=== PATIENT | male | born 1935 | race Hispanic/Latino ===

== ENCOUNTER 2017-06-13 15:17 | Observation (INO) | payer MEDICARE, OTHER ==
[2017-06-13 15:18] VITALS: BMI 25.5
[2017-06-13] MEDS ORDERED: Sodium Chloride 0.9% 1,000 ML IV STA (15:38)
[2017-06-13 15:59] LABS: BASO # 0.1 K/uL (0.0-0.2); BASO % 0.6 % (0.0-2.0); EOS # 0.3 K/uL (0.0-0.7); EOS % 3.7 % (0.0-4.0); HEMATOCRIT 42.5 % (35.0-51.0); LYMPH # 1.8 K/uL (1.0-4.3); LYMPH % 20.6 % (20.0-40.0); MEAN CELL VOLUME 91.2 fl (80.0-94.0); MEAN PLATELET VOLUME 7.3 fl (7.2-11.7); MONO # 0.7 K/uL (0.0-0.8); MONO % 7.8 % (0.0-10.0); NEUT % 67.3 % (50.0-75.0)
[2017-06-13 16:11] LABS: ALB/GLOB RATIO 1.2 (1.0-2.1); ALKALINE PHOSPHATASE 47 U/L (38-126); ALT/SGPT 32 U/L (21-72); AST/SGOT 36 U/L (17-59); BILIRUBIN,TOTAL 0.4 mg/dl (0.2-1.3); BLOOD UREA NITROGEN 19 mg/dl (9-20); CALCIUM 8.8 mg/dL (8.4-10.2); CARBON DIOXIDE 28 mmol/L (22-30); CHLORIDE 99 mmol/L (98-107); GFR AFRICAN-AMERICAN > 60; GLUCOSE,RANDOM 117 mg/dL (75-110); LIPASE 171 U/L (23-300); SODIUM 136 mmol/l (132-148); TOTAL PROTEIN 7.6 G/DL (6.3-8.2)
--- NOTE | 2017-06-13 16:13 | ED PDOC ---
HPI: Abdomen Time Seen by Provider: 06/13/17 15:31 Chief Complaint (Nursing): GI Problem Chief Complaint (Provider): GI Problem History Per: Patient History/Exam Limitations: no limitations Onset/Duration Of Symptoms: Days (x2 weeks) Current Symptoms Are (Timing): Still Present Additional Complaint(s): Castro Moura is a 82 year old male with previous medical history of Alzheimer's disease, dementia, hypertension and asthma, referred to the emergency department by Dr. Gomez, for an evaluation of intermittent upper abdominal pain exasperated after eating associated with nausea and vomiting ongoing for 2 weeks. Denied fever, chills, diarrhea, bloody stools, chest pain, cough or similar episodes in past. Medical Office Assistant: Colleen PMD: Ramiro Gomez MD Past Medical History Reviewed: Historical Data, Nursing Documentation, Vital Signs Vital Signs: Last Vital Signs Temp 98.4 F 06/13/17 15:23 Pulse 58 L 06/13/17 15:23 Resp 16 06/13/17 15:23 BP 145/76 06/13/17 15:23 Pulse Ox 100 06/13/17 18:20 - Medical History PMH: Alzheimer's Disease, Asthma, Benign Prostatic Hyperplasia, Dementia, HTN, Hypercholesterolemia, Hyperthyroidism, Hypothyroidism Denies: Chronic Kidney Disease - Surgical History Surgical History: No Surg Hx - Social History Current smoker - smoking cessation education provided: No Alcohol: None Drugs: Denies - Home Medications Home Medications: Ambulatory Orders Medication Instructions Recorded Cephalexin [Keflex] 500 mg pe PO QID 11/27/15 Levothyroxine [Synthroid] 1 tab PO DAILY 11/27/15 Tamsulosin [Flomax] 1 cap PO DAILY 11/27/15 traZODone [Desyrel] 1 tab PO HS 11/27/15 - Allergies Allergies/Adverse Reactions: Allergies Allergy/AdvReac Type Severity Reaction Status Date / Time No Known Allergies Allergy Verified 06/13/17 15:23 Review of Systems ROS Statement: Except As Marked, All Systems Reviewed And Found Negative Constitutional: Negative for: Fever, Chills Cardiovascular: Negative for: Chest Pain Respiratory: Negative for: Cough Gastrointestinal: Positive for: Nausea, Vomiting, Abdominal Pain (upper). Negative for: Diarrhea, Melena Physical Exam - Reviewed Nursing Documentation Reviewed: Yes Vital Signs Reviewed: Yes - Physical Exam Appears: Positive for: Well, Non-toxic, No Acute Distress Head Exam: Positive for: ATRAUMATIC, NORMAL INSPECTION, NORMOCEPHALIC Skin: Positive for: Normal Color Eye Exam: Positive for: Normal appearance ENT: Positive for: Normal ENT Inspection Neck: Positive for: Normal, Painless ROM, Supple. Negative for: Decreased ROM Cardiovascular/Chest: Positive for: Regular Rate, Rhythm, Chest Non Tender Respiratory: Positive for: Normal Breath Sounds, Accessory Muscle Use. Negative for: Decreased Breath Sounds, Respiratory Distress Gastrointestinal/Abdominal: Positive for: Bowel Sounds, Tenderness (mild epigastric/RUQ). Negative for: Normal Exam, Mass Back: Positive for: Normal Inspection. Negative for: L CVA Tenderness, R CVA Tenderness Extremity: Positive for: Normal ROM. Negative for: Tenderness, Pedal Edema, Deformity Neurologic/Psych: Positive for: Alert, Oriented - Laboratory Results Result Diagrams: 06/13/17 15:55 06/13/17 15:55 - ECG O2 Sat by Pulse Oximetry: 100 (RA) Pulse Ox Interpretation: Normal Medical Decision Making Medical Decision Making: Initial Impression: Abdominal pain R/O colelithiasis vs. gastritis vs. gastroenteritis vs. malignancy Initial Plan: * EKG * CMP * Lipase * Troponin I * CBC * NS 1,000ml IV per 1,000mls/hr * Pepcid 20mg IV * Zofran inj 4mg IV * US ABD Time: 1731 --US ABD FINDINGS: LIVER: Measures 11.0 cm. Normal echogenicity of the liver parenchyma. No mass. No intrahepatic bile duct dilatation. GALLBLADDER: There are multiple gallstones. No gallbladder wall thickening, pericholecystic fluid or positive sonographic Gordillo's sign. COMMON BILE DUCT: Measures 3.7 mm. No stones. No dilatation. PANCREAS: Unremarkable as visualized. No mass. No ductal dilatation. RIGHT KIDNEY: Measures 8.9cm. Normal echogenicity. No calculus, mass, or hydronephrosis. LEFT KIDNEY: Measures 9.4cm. Normal echogenicity. No calculus, mass, or hydronephrosis. SPLEEN: Normal in size and contour. No mass. AORTA: No aneurysmal dilatation. IVC: Unremarkable. OTHER FINDINGS: None. IMPRESSION: Cholelithiasis. No evidence of acute cholecystitis. Case discussed w PMD office, Dr Beau Gomez (RIDE MECHANIC who saw patient today) who recommends admission as patient unable to keep liquids down last several days, he lives alone, elderly with mild dementia. Dr Gomez admits to Dr Delacruz, call placed for endorsement to Dr Delacruz. d/w surgical resudent 7pm Scribe Attestation: Documented by Nettie Sharpe, acting as a scribe for Juan R Tan III, DO. Provider Scribe Attestation: All medical record entries made by the Scribe were at my direction and personally dictated by me. I have reviewed the chart and agree that the record accurately reflects my personal performance of the history, physical exam, medical decision making, and the department course for this patient. I have also personally directed, reviewed, and agree with the discharge instructions and disposition. Disposition - Clinical Impression Clinical Impression: Cholelithiases, Vomiting - Patient ED Disposition Is Patient to be Admitted: Yes - Disposition Disposition Time: 18:05 Condition: STABLE - Pt Status Changed To: Hospital Disposition Of: Observation - POA Present On Arrival: None
[2017-06-13 16:34] LABS: POTASSIUM 4.4 MMOL/L (3.6-5.0)
--- NOTE | 2017-06-13 17:33 | US ---
HISTORY: Upper abdominal pain and vomiting COMPARISON: None. TECHNIQUE: Sonographic evaluation of the abdomen. FINDINGS: LIVER: Measures 11.0 cm. Normal echogenicity of the liver parenchyma. No mass. No intrahepatic bile duct dilatation. GALLBLADDER: There are multiple gallstones. No gallbladder wall thickening, pericholecystic fluid or positive sonographic Gordillo's sign. COMMON BILE DUCT: Measures 3.7 mm. No stones. No dilatation. PANCREAS: Unremarkable as visualized. No mass. No ductal dilatation. RIGHT KIDNEY: Measures 8.9cm. Normal echogenicity. No calculus, mass, or hydronephrosis. LEFT KIDNEY: Measures 9.4cm. Normal echogenicity. No calculus, mass, or hydronephrosis. SPLEEN: Normal in size and contour. No mass. AORTA: No aneurysmal dilatation. IVC: Unremarkable. OTHER FINDINGS: None. IMPRESSION: Cholelithiasis. No evidence of acute cholecystitis.
--- NOTE | 2017-06-14 00:32 | CP.PCM.CON ---
History of Present Illness - History of Present Illness History of Present Illness: GENERAL SURGERY PROGRESS NOTE FOR DR. LEVIN 82yo M with PMHx of alzheimers, dementia, HTN, asthma, BPH, hypothyroidism presents to the ED as referred by Dr. Gomez for intermittent abdominal pain. The pain has been present for 2-3 weeks and is located in the epigastric area. He reports that it sometimes is worse with eating. He vomited 4 times but has not vomited since he got to the hospital. He denies nausea. Currently, he reports that the pain is gone and he is hungry. PMHx: alzheimers, dementia, HTN, asthma, BPH, hypothyroidism Surgeries: none Allergies: none Social history: denies etoh, tobacco or illicit drug use Review of Systems - Review of Systems All systems: reviewed and no additional remarkable complaints except (as per HPI ) Past Patient History - Past Medical History & Family History Past Medical History?: Yes - Past Social History Smoking Status: Never Smoked - CARDIAC Hx Hypercholesterolemia: Yes Hx Hypertension: Yes - PULMONARY Hx Asthma: Yes - NEUROLOGICAL Hx Alzheimer's Disease: Yes Hx Dementia: Yes - HEENT Hx Cataracts: Yes (s/p surgery) - RENAL Hx Chronic Kidney Disease: No - ENDOCRINE/METABOLIC Hx Hyperthyroidism: Yes Hx Hypothyroidism: Yes - MUSCULOSKELETAL/RHEUMATOLOGICAL Hx Back Pain: Yes Hx Falls: Yes (5 years ago) - GASTROINTESTINAL Hx Gastrointestinal Disorders: No - GENITOURINARY/GYNECOLOGICAL Hx Genitourinary Disorders: Yes - PSYCHIATRIC Hx Psychophysiologic Disorder: No Hx Substance Use: No - SURGICAL HISTORY Hx Surgeries: No - ANESTHESIA Hx Anesthesia: No Hx Anesthesia Reactions: No Meds Allergies/Adverse Reactions: Allergies Allergy/AdvReac Type Severity Reaction Status Date / Time No Known Allergies Allergy Verified 06/13/17 15:23 - Medications Medications: Current Medications Acetaminophen (Tylenol 325mg Tab) 650 mg PO Q6 PRN PRN Reason: Pain, moderate (4-7) Enoxaparin Sodium (Lovenox) 40 mg SC DAILY [facility] PRN Reason: Protocol Stop: 06/17/17 23:59 Levothyroxine Sodium (Synthroid) 100 mcg PO DAILY@0630 [facility] Tamsulosin HCl (Flomax) 0.4 mg PO DAILY [facility] Trazodone HCl (Desyrel) 50 mg PO HS [facility] Last Admin: 06/13/17 23:09 Dose: 50 mg Physical Exam - Constitutional Appears: Non-toxic, No Acute Distress - Head Exam Head Exam: ATRAUMATIC, NORMAL INSPECTION - Eye Exam Eye Exam: EOMI, Normal appearance - Respiratory Exam Respiratory Exam: NORMAL BREATHING PATTERN. absent: Respiratory Distress - Cardiovascular Exam Cardiovascular Exam: +S1, +S2 - GI/Abdominal Exam GI & Abdominal Exam: Soft, Tenderness (mild tenderness epigastric area). absent : Distended, Firm, Guarding, Hypoactive Bowel Sounds, Rebound, Rigid - Neurological Exam Neurological exam: Alert - Psychiatric Exam Psychiatric exam: Normal Affect, Normal Mood - Skin Skin Exam: Dry, Normal Color, Warm Results - Vital Signs Recent Vital Signs: Last Vital Signs Temp 97.7 F 06/13/17 20:53 Pulse 62 06/13/17 22:21 Resp 17 06/13/17 22:21 BP 129/72 06/13/17 20:53 Pulse Ox 94 L 06/13/17 22:21 - Labs Result Diagrams: 06/13/17 15:55 06/14/17 05:00 Labs: Laboratory Results - last 24 hr 06/13/17 06/13/17 15:55 15:55 WBC 9.0 RBC 4.66 Hgb 14.5 Hct 42.5 MCV 91.2 MCH 31.0 MCHC 34.0 RDW 14.0 Plt Count 220 MPV 7.3 Neut % (Auto) 67.3 Lymph % (Auto) 20.6 [place] % (Auto) 7.8 Eos % (Auto) 3.7 Baso % (Auto) 0.6 Neut # 6.0 Lymph # 1.8 [place] # 0.7 Eos # 0.3 Baso # 0.1 Sodium 136 Potassium 4.4 Chloride 99 Carbon Dioxide 28 Anion Gap 13 BUN 19 Creatinine 0.9 Est GFR ( Amer) > 60 Est GFR (Non-Af Amer) > 60 Random Glucose 117 H Calcium 8.8 Total Bilirubin 0.4 AST 36 ALT 32 Alkaline Phosphatase 47 Troponin I 0.0710 Total Protein 7.6 Albumin 4.2 Globulin 3.4 Albumin/Globulin Ratio 1.2 Lipase 171 Assessment & Plan - Assessment and Plan (Free Text) Assessment: 82yo M with PMHx of alzheimers, dementia, HTN, asthma, BPH, hypothyroidism who was found to have cholelithiasis and possibly biliary colic - Afebrile, VSS - No leukocytosis - Bilirubin, LFTs WNL - US: multiple gallstones, no signs of cholecystitis, CBD 3.7mm - Regular diet - Zofran and Percocet PRN - Will do serial abdominal exams - Can follow up outpatient in Dr. Levin's office for elective cholecystectomy - Discussed plan with Dr. Keyla Romero PGY-3
[2017-06-14] MEDS ORDERED: Oxycodone/Acetaminophen 5/325 mg Tab PO PRN (00:35)
[2017-06-14 05:47] LABS: HEMATOCRIT 39.5 % (35.0-51.0); MEAN CELL VOLUME 91.6 fl (80.0-94.0); MEAN CORPUSCULAR HEMOGLOBIN 31.5 pg (27.0-31.0); MEAN CORPUSCULAR HGB CONC 34.4 g/dL (33.0-37.0)
[2017-06-14 06:07] LABS: ALB/GLOB RATIO 1.2 (1.0-2.1); ALKALINE PHOSPHATASE 44 U/L (38-126); ALT/SGPT 24 U/L (21-72); AST/SGOT 20 U/L (17-59); BILIRUBIN,TOTAL 0.5 mg/dl (0.2-1.3); BLOOD UREA NITROGEN 15 mg/dl (9-20); CALCIUM 8.4 mg/dL (8.4-10.2); CARBON DIOXIDE 29 mmol/L (22-30); CHLORIDE 104 mmol/L (98-107); CHOLESTEROL 187 mg/dL (0-199); GFR AFRICAN-AMERICAN > 60; GLUCOSE,RANDOM 92 mg/dL (75-110); POTASSIUM 3.7 MMOL/L (3.6-5.0); SODIUM 139 mmol/l (132-148); TOTAL PROTEIN 6.2 G/DL (6.3-8.2)
[2017-06-14 06:30] LABS: THYROID STIMULATING HORMONE 1.78 mIU/ML (0.46-4.68)
[2017-06-14] MEDS ORDERED: Levothyroxine 100 MCG TAB PO SCH (06:30)
[2017-06-14 07:53] VITALS: RESP 18
--- NOTE | 2017-06-14 08:47 | CP.PCM.CON ---
<Radha Diego - Last Filed: 06/14/17 10:58> History of Present Illness - History of Present Illness History of Present Illness: GI Fellow PGY4 Consult Note This is a 82yo M with PMHx of alzheimers, dementia, HTN, asthma, BPH, hypothyroidism presents to the ED for intermittent right upper quadrant abdominal pain. Pt reports he has been experiencing pain for = 2-3 weeks and is worse with eating certain meals, not all the time. He vomited 4 times but has not vomited since he got to the hospital. Currently, he reports that the pain is gone and is eating scrambled eggs and pancakes with no complaints. Pt denies any fevers or chills at home. Pt had an EGD/Colonoscopy with which showed esophagitis, erosions in antrum, chronic gastritis, negative for H.Pylori. Colonoscopy showed diverticulosis and internal hemorrhoids. Pt is not any PPI therapy at home and reports intermittent heartburn. ROS: A 12pt ROS negative except as above PMHx: alzheimers, dementia, HTN, asthma, BPH, hypothyroidism PSHx: None SHx: denies etoh, tobacco or illicit drug use FHx: denies colon cancer Past Patient History - Past Medical History & Family History Past Medical History?: Yes - Past Social History Smoking Status: Never Smoked - CARDIAC Hx Hypercholesterolemia: Yes Hx Hypertension: Yes - PULMONARY Hx Asthma: Yes - NEUROLOGICAL Hx Alzheimer's Disease: Yes Hx Dementia: Yes - HEENT Hx Cataracts: Yes (s/p surgery) - RENAL Hx Chronic Kidney Disease: No - ENDOCRINE/METABOLIC Hx Hyperthyroidism: Yes Hx Hypothyroidism: Yes - MUSCULOSKELETAL/RHEUMATOLOGICAL Hx Back Pain: Yes Hx Falls: Yes (5 years ago) - GASTROINTESTINAL Hx Gastrointestinal Disorders: No - GENITOURINARY/GYNECOLOGICAL Hx Genitourinary Disorders: Yes - PSYCHIATRIC Hx Psychophysiologic Disorder: No Hx Substance Use: No - SURGICAL HISTORY Hx Surgeries: No - ANESTHESIA Hx Anesthesia: No Hx Anesthesia Reactions: No Meds Allergies/Adverse Reactions: Allergies Allergy/AdvReac Type Severity Reaction Status Date / Time No Known Allergies Allergy Verified 06/13/17 15:23 - Medications Medications: Current Medications Acetaminophen (Tylenol 325mg Tab) 650 mg PO Q6 PRN PRN Reason: Pain, moderate (4-7) Enoxaparin Sodium (Lovenox) 40 mg SC DAILY [facility] PRN Reason: Protocol Stop: 06/17/17 23:59 Levothyroxine Sodium (Synthroid) 100 mcg PO DAILY@0630 [facility] Last Admin: 06/14/17 06:21 Dose: 100 mcg Ondansetron HCl (Zofran Inj) 4 mg IVP Q4 PRN PRN Reason: Nausea/Vomiting Oxycodone/Acetaminophen (Percocet 5/325 Mg Tab) 1 tab PO Q4 PRN PRN Reason: Pain, moderate (4-7) Stop: 06/17/17 00:36 Tamsulosin HCl (Flomax) 0.4 mg PO DAILY [facility] Trazodone HCl (Desyrel) 50 mg PO HS [facility] Last Admin: 06/13/17 23:09 Dose: 50 mg Physical Exam - Constitutional Appears: Non-toxic, No Acute Distress - Head Exam Head Exam: ATRAUMATIC, NORMAL INSPECTION, NORMOCEPHALIC - Eye Exam Eye Exam: EOMI, Normal appearance, PERRL Pupil Exam: PERRL - ENT Exam ENT Exam: Mucous Membranes Moist, Normal Exam - Neck Exam Neck exam: Positive for: Normal Inspection - Respiratory Exam Respiratory Exam: Clear to Auscultation Bilateral, NORMAL BREATHING PATTERN - Cardiovascular Exam Cardiovascular Exam: RRR, +S1, +S2 - GI/Abdominal Exam GI & Abdominal Exam: Normal Bowel Sounds, Soft. absent: Distended, Firm, Guarding, Organomegaly, Rigid, Tenderness - Rectal Exam Rectal Exam: Deferred - Extremities Exam Extremities exam: Positive for: full ROM, normal inspection - Back Exam Back exam: NORMAL INSPECTION - Neurological Exam Neurological exam: Alert, Oriented x3 - Psychiatric Exam Psychiatric exam: Normal Affect, Normal Mood - Skin Skin Exam: Dry, Intact, Normal Color, Warm Results - Vital Signs Recent Vital Signs: Last Vital Signs Temp 98.1 F 06/14/17 07:52 Pulse 63 06/14/17 07:52 Resp 18 06/14/17 07:52 BP 117/68 06/14/17 07:52 Pulse Ox 98 06/14/17 07:52 - Labs Result Diagrams: 06/13/17 15:55 06/14/17 05:00 Labs: Laboratory Results - last 24 hr 06/13/17 06/13/17 06/13/17 05:00 15:55 15:55 WBC 7.0 9.0 RBC 4.31 L 4.66 Hgb 13.6 14.5 Hct 39.5 42.5 MCV 91.6 91.2 MCH 31.5 H 31.0 MCHC 34.4 34.0 RDW 14.0 14.0 Plt Count 214 220 MPV 7.3 Neut % (Auto) 67.3 Lymph % (Auto) 20.6 [place] % (Auto) 7.8 Eos % (Auto) 3.7 Baso % (Auto) 0.6 Neut # 6.0 Lymph # 1.8 [place] # 0.7 Eos # 0.3 Baso # 0.1 Sodium 136 Potassium 4.4 Chloride 99 Carbon Dioxide 28 Anion Gap 13 BUN 19 Creatinine 0.9 Est GFR ( Amer) > 60 Est GFR (Non-Af Amer) > 60 Random Glucose 117 H Calcium 8.8 Total Bilirubin 0.4 AST 36 ALT 32 Alkaline Phosphatase 47 Troponin I 0.0710 Total Protein 7.6 Albumin 4.2 Globulin 3.4 Albumin/Globulin Ratio 1.2 Triglycerides Cholesterol LDL Cholesterol Direct HDL Cholesterol Lipase 171 Vitamin B12 Thyroxine (T4) Total T3 TSH 3rd Generation 06/14/17 05:00 WBC RBC Hgb Hct MCV MCH MCHC RDW Plt Count MPV Neut % (Auto) Lymph % (Auto) [place] % (Auto) Eos % (Auto) Baso % (Auto) Neut # Lymph # [place] # Eos # Baso # Sodium 139 Potassium 3.7 Chloride 104 Carbon Dioxide 29 Anion Gap 10 BUN 15 Creatinine 0.9 Est GFR ( Amer) > 60 Est GFR (Non-Af Amer) > 60 Random Glucose 92 Calcium 8.4 Total Bilirubin 0.5 AST 20 ALT 24 Alkaline Phosphatase 44 Troponin I Total Protein 6.2 L Albumin 3.4 L Globulin 2.9 Albumin/Globulin Ratio 1.2 Triglycerides 131 Cholesterol 187 LDL Cholesterol Direct 126 HDL Cholesterol 33 Lipase Vitamin B12 640 Thyroxine (T4) 7.90 Total T3 0.792 L TSH 3rd Generation 1.78 Assessment & Plan - Assessment and Plan (Free Text) Assessment: This is a 82yM with PMHx of alzheimers, dementia, HTN, asthma, BPH, hypothyroidism presenting with RUQ abdominal pain and vomiting. 1. Cholelithiasis 2. Abdominal pain and vomiting -Biliary colic 3. Hx of chronic gastritis Plan: -Continue supportive care with pain control and anti-emetics - No signs of infection with no leukocytosis, Afebrile - Labs are wnl with Bilirubin, LFTs - Abdominal US: multiple gallstones, no signs of cholecystitis, CBD 3.7mm - No more abdominal pain, vomiting or nausea - Advance diet as tolerated - Follow up with surgery for cholecystectomy - No plan for endoscopic evaluation - Can take Pepcid prn heartburn for gastritis - Please call with any questions or concerns <Graciela Belle MD - Last Filed: 06/14/17 14:52> Meds - Medications Medications: Current Medications Acetaminophen (Tylenol 325mg Tab) 650 mg PO Q6 PRN PRN Reason: Pain, moderate (4-7) Last Admin: 06/14/17 13:31 Dose: 650 mg Enoxaparin Sodium (Lovenox) 40 mg SC DAILY [facility] PRN Reason: Protocol Stop: 06/17/17 23:59 Last Admin: 06/14/17 09:02 Dose: 40 mg Levothyroxine Sodium (Synthroid) 100 mcg PO DAILY@0630 [facility] Last Admin: 06/14/17 06:21 Dose: 100 mcg Ondansetron HCl (Zofran Inj) 4 mg IVP Q4 PRN PRN Reason: Nausea/Vomiting Last Admin: 06/14/17 09:09 Dose: 4 mg Oxycodone/Acetaminophen (Percocet 5/325 Mg Tab) 1 tab PO Q4 PRN PRN Reason: Pain, moderate (4-7) Stop: 06/17/17 00:36 Pantoprazole Sodium (Protonix Ec Tab) 40 mg PO DAILY [facility] Last Admin: 06/14/17 13:31 Dose: 40 mg Tamsulosin HCl (Flomax) 0.4 mg PO DAILY [facility] Last Admin: 06/14/17 09:03 Dose: 0.4 mg Trazodone HCl (Desyrel) 50 mg PO HS [facility] Last Admin: 06/13/17 23:09 Dose: 50 mg Results - Vital Signs Recent Vital Signs: Last Vital Signs Temp 98.1 F 06/14/17 07:52 Pulse 63 06/14/17 07:52 Resp 18 06/14/17 07:52 BP 117/68 06/14/17 07:52 Pulse Ox 98 06/14/17 07:52 - Labs Result Diagrams: 06/13/17 15:55 06/14/17 05:00 Labs: Laboratory Results - last 24 hr 06/13/17 06/13/17 06/13/17 05:00 15:55 15:55 WBC 7.0 9.0 RBC 4.31 L 4.66 Hgb 13.6 14.5 Hct 39.5 42.5 MCV 91.6 91.2 MCH 31.5 H 31.0 MCHC 34.4 34.0 RDW 14.0 14.0 Plt Count 214 220 MPV 7.3 Neut % (Auto) 67.3 Lymph % (Auto) 20.6 [place] % (Auto) 7.8 Eos % (Auto) 3.7 Baso % (Auto) 0.6 Neut # 6.0 Lymph # 1.8 [place] # 0.7 Eos # 0.3 Baso # 0.1 Sodium 136 Potassium 4.4 Chloride 99 Carbon Dioxide 28 Anion Gap 13 BUN 19 Creatinine 0.9 Est GFR ( Amer) > 60 Est GFR (Non-Af Amer) > 60 Random Glucose 117 H Calcium 8.8 Total Bilirubin 0.4 AST 36 ALT 32 Alkaline Phosphatase 47 Troponin I 0.0710 Total Protein 7.6 Albumin 4.2 Globulin 3.4 Albumin/Globulin Ratio 1.2 Triglycerides Cholesterol LDL Cholesterol Direct HDL Cholesterol Lipase 171 Vitamin B12 Thyroxine (T4) Total T3 TSH 3rd Generation 06/14/17 05:00 WBC RBC Hgb Hct MCV MCH MCHC RDW Plt Count MPV Neut % (Auto) Lymph % (Auto) [place] % (Auto) Eos % (Auto) Baso % (Auto) Neut # Lymph # [place] # Eos # Baso # Sodium 139 Potassium 3.7 Chloride 104 Carbon Dioxide 29 Anion Gap 10 BUN 15 Creatinine 0.9 Est GFR ( Amer) > 60 Est GFR (Non-Af Amer) > 60 Random Glucose 92 Calcium 8.4 Total Bilirubin 0.5 AST 20 ALT 24 Alkaline Phosphatase 44 Troponin I Total Protein 6.2 L Albumin 3.4 L Globulin 2.9 Albumin/Globulin Ratio 1.2 Triglycerides 131 Cholesterol 187 LDL Cholesterol Direct 126 HDL Cholesterol 33 Lipase Vitamin B12 640 Thyroxine (T4) 7.90 Total T3 0.792 L TSH 3rd Generation 1.78 Attending/Attestation - Attestation I have personally seen and examined this patient.: Yes I have fully participated in the care of the patient.: Yes I have reviewed all pertinent clinical information: Yes Notes (Text): 06/14/17 14:48 This is a 82 yr old M with PMHx of alzheimers, dementia, HTN, asthma, BPH, hypothyroidism presenting with RUQ abdominal pain and vomiting with cholelithiasis and normal CBD. No s/s of cholangitis. Normal LFT. Tolerating diet. No GI work up necessary. No Gi symptoms. Rest of plan as per surgery. Thank you for letting us participate in the care of your patient.
[2017-06-14] MEDS ORDERED: Enoxaparin 40 mg Syringe SC SCH (09:00)
[2017-06-14] MEDS ORDERED: Pantoprazole 40 mg EC Tab PO SCH (10:30)
--- NOTE | 2017-06-14 12:04 | HP ---
CHIEF COMPLAINT: Abdominal pain. HISTORY OF PRESENT ILLNESS: This is an 82-year-old man who lives at home alone and was having abdominal pain for a long time for which he visited primary care physician's office and was treated accordingly, but the patient's symptoms continued, it got worse, so the patient was brought to the emergency room and was admitted for further management. PAST MEDICAL HISTORY: Significant for dementia, asthma, BPH, hypertension. PAST SURGICAL HISTORY: Unremarkable. PERSONAL HISTORY: The patient is currently nonsmoker, nondrinker. No substance abuse. MEDICATIONS: The patient is on multiple medications including Keflex, Synthroid, Flomax and . ALLERGIES: THE PATIENT IS NOT ALLERGIC TO ANY MEDICATIONS. FAMILY HISTORY: Noncontributory. REVIEW OF SYSTEMS: Positive for abdominal pain. Review of systems otherwise is negative for headache, dizziness, syncope, loss of consciousness, chest pain, shortness of breath, nausea, vomiting, diarrhea, constipation, anemia, joint or extremity pain. Review of systems of all other organ system is unremarkable. PHYSICAL EXAMINATION GENERAL: A well-built, well-nourished, 82-year-old male, in no acute distress. VITAL SIGNS: Temperature 98.1, pulse 63, respirations 18, blood pressure 117/68. HEENT: Pupils reacting to light. No JVD. No thyromegaly. No lymphadenopathy. No nystagmus. Normocephalic, atraumatic skull. HEART: S1 and S2, normal and regular. No significant murmur, gallop or rub is heard. LUNGS: Shows good bilateral air exchange. No rales or rhonchi. ABDOMEN: Soft, nontender. No organomegaly. No fluid. No sign of acute abdomen. No guarding. No rigidity. No rebound. Bowel sounds are plus and normal. EXTERNAL GENITALIA: Appropriate for the patient's age. Stool for occult blood is negative. EXTREMITIES: No edema. No calf swelling. No tenderness. No acute ischemia. CENTRAL NERVOUS SYSTEM: Essentially unchanged. DIAGNOSTIC DATA: Available diagnostic data reviewed. WBC 9.0, hemoglobin 14.5, hematocrit 42.5, platelet 220. Sodium 139, potassium 3.7, chloride 104, bicarb 29, BUN 15, creatinine 0.9. SMA-12 is unremarkable. Abdominal ultrasound showed gallstones. Surgical consult noted and appreciated. ADMITTING IMPRESSION: Abdominal pain, cholelithiasis, hypertension, hypothyroidism. PLAN: As ordered. Case and plan discussed with the patient. Cristobal Delacruz MD
--- NOTE | 2017-06-14 15:05 | CP.PCM.PCO ---
Assessment/Plan - Assessment/Plan Assessment (Free Text): Pt stable, tolerated 75 % of lunch. C/o of headache, tylenol given, pt feels better. Pt seen by GI and Sx, no intervention at this time. Pt to f/u as outpatient with Dr. Ramires. Pt seen and cleared for d/c home by Dr. Delacruz. Spoke to pt's son Johnathon ([phone]) who states pt lives with him and that either him or his brother will come to roll picker pt to take him home. Rx given for protonix. - Problems Patient Problems: Problem List (Active/Current) Problem Status Onset Code Cholelithiases Acute K80.20 Vomiting Acute R11.10
[2017-06-14 15:56] VITALS: BP 112/78; PULSE 75; TEMP 98.2; O2SAT 96
--- NOTE | 2017-06-15 08:50 | CARD ---
APPROVED REPORT EKG Measurement Heart [id number] <Conclusion> Sinus bradycardia Otherwise normal ECG
== END 2017-06-14 18:09 | disposition home or self-care (01) ==
LOC: H.ER 15:17 → H.ERHOLD 18:17 → INTOOBSV 18:17 → H.MEDSURG1 20:20
PROVIDERS: ADMIT Internal Medicine; ATTEND Internal Medicine
DX: K80.20 Calculus of gallbladder without cholecystitis without obstruction (principal); K29.50 Unspecified chronic gastritis without bleeding; G30.9 Alzheimer's disease, unspecified; F02.80 Dementia in other diseases classified elsewhere, unspecified severity, without behavioral disturbance, psychotic disturbance, mood disturbance, and anxiety; E03.9 Hypothyroidism, unspecified; I10 Essential (primary) hypertension; J45.909 Unspecified asthma, uncomplicated; N40.0 Benign prostatic hyperplasia without lower urinary tract symptoms; E78.00 Pure hypercholesterolemia, unspecified
CPT/HCPCS: 36415; 76700; 80053; 80061; 82607; 83690; 84436; 84443; 84480; 84484; 85025; 85027; 99283; G0378; J1650; J1885; J2405; J7040

== ENCOUNTER 2018-02-25 15:34 | Inpatient (IN) | payer MEDICARE, MEDICAID ==
[2018-02-25 15:34] VITALS: BMI 25.5
[2018-02-25] MEDS ORDERED: Sodium Chloride 0.9% 1,000 ML IV STA (16:22)
--- NOTE | 2018-02-25 16:28 | ED PDOC ---
HPI: Abdomen Time Seen by Provider: 02/25/18 16:14 Chief Complaint (Nursing): Abdominal Pain Chief Complaint (Provider): RUQ pain History Per: Patient History/Exam Limitations: no limitations Onset/Duration Of Symptoms: Days (3 months) Additional Complaint(s): Pt. with abd pain RUQ and epigastric for 3 months. Seen in ER here and at [address] Was told it was his gallbladder but did not get any surgery for it. Has had nausea and vomit, nonbloody with it. No back pain, lower abd pain , weakness, dysuria. No headaches, dizziness. No fever. No chest pain or dyspnea. PCP: Dr. Terrazas; Dr. Delacruz admits for him. Past Medical History Reviewed: Nursing Documentation, Vital Signs Vital Signs: Last Vital Signs Temp 97.9 F 02/25/18 15:47 Pulse 60 02/25/18 15:47 Resp 18 02/25/18 15:47 BP 132/70 02/25/18 15:47 Pulse Ox 97 02/25/18 16:29 - Medical History PMH: Alzheimer's Disease, Asthma, Benign Prostatic Hyperplasia, Dementia, HTN, Hypercholesterolemia, Hyperthyroidism, Hypothyroidism Denies: Chronic Kidney Disease - Surgical History Surgical History: No Surg Hx - Family History Family History: States: Unknown Family Hx - Home Medications Home Medications: Ambulatory Orders Medication Instructions Recorded RX: Levothyroxine [Synthroid] 1 tab PO DAILY 11/27/15 RX: Tamsulosin [Flomax] 1 cap PO DAILY 11/27/15 RX: traZODone [Desyrel] 1 tab PO HS 11/27/15 RX: Pantoprazole [Protonix EC Tab] 40 mg PO DAILY #30 ect 06/14/17 - Allergies Allergies/Adverse Reactions: Allergies Allergy/AdvReac Type Severity Reaction Status Date / Time No Known Allergies Allergy Verified 02/25/18 15:47 Review of Systems ROS Statement: Except As Marked, All Systems Reviewed And Found Negative Gastrointestinal: Positive for: Nausea, Vomiting, Abdominal Pain Physical Exam - Reviewed Nursing Documentation Reviewed: Yes Vital Signs Reviewed: Yes - Physical Exam Appears: Positive for: Non-toxic, No Acute Distress Head Exam: Positive for: ATRAUMATIC, NORMAL INSPECTION, NORMOCEPHALIC Skin: Positive for: Normal Color, Warm, DRY Eye Exam: Positive for: EOMI, Normal appearance, PERRL ENT: Positive for: Normal ENT Inspection Neck: Positive for: Normal, Painless ROM Cardiovascular/Chest: Positive for: Regular Rate, Rhythm Respiratory: Positive for: CNT, Normal Breath Sounds Gastrointestinal/Abdominal: Positive for: Soft, Tenderness (epigastric and RUQ; no tenderness to deep palpation of periumbilical or R and L lower quadrant.) Back: Positive for: Normal Inspection. Negative for: L CVA Tenderness, R CVA Tenderness Extremity: Positive for: Normal ROM Neurologic/Psych: Positive for: Alert, Oriented - ECG O2 Sat by Pulse Oximetry: 97 - Progress ED Course And Treament: 1658: Dr. Tan to take over care. Fu on labs and imaging. Disposition - Clinical Impression Clinical Impression: Abdominal pain - Patient ED Disposition Is Patient to be Admitted: Transfer of Care - Disposition Disposition Time: 17:00 Condition: FAIR Patient Signed Over To: Juan R Tan III
[2018-02-25 16:51] LABS: BASO % 0.2 % (0.0-2.0); EOS # 0.6 K/uL (0.0-0.7); EOS % 6.8 % (0.0-4.0); HEMOGLOBIN 13.7 g/dL (12.0-18.0); LYMPH % 23.1 % (20.0-40.0); MEAN CELL VOLUME 92.6 fl (80.0-94.0); MEAN CORPUSCULAR HEMOGLOBIN 30.9 pg (27.0-31.0); MEAN CORPUSCULAR HGB CONC 33.4 g/dL (33.0-37.0); MEAN PLATELET VOLUME 7.5 fl (7.2-11.7); MONO # 0.8 K/uL (0.0-0.8); MONO % 9.1 % (0.0-10.0); NEUT # 5.2 K/uL (1.8-7.0); NEUT % 60.8 % (50.0-75.0); RBC 4.44 Mil/uL (4.40-5.90); RED CELL DISTRIBUTION WIDTH 14.1 % (11.5-14.5); WHITE BLOOD COUNT 8.6 K/uL (4.8-10.8)
[2018-02-25 17:06] LABS: ALB/GLOB RATIO 1.3 (1.0-2.1); ALBUMIN 3.9 g/dL (3.5-5.0); ALT/SGPT 29 U/L (21-72); AST/SGOT 27 U/L (17-59); BLOOD UREA NITROGEN 19 mg/dl (9-20); CALCIUM 8.8 mg/dL (8.4-10.2); GFR AFRICAN-AMERICAN > 60; GFR NON-AFRICAN AMERICAN > 60; LIPASE 215 U/L (23-300)
[2018-02-25 17:16] LABS: PARTIAL THROMBOPLASTIN TIME 30.4 Seconds (25.6-37.1)
--- NOTE | 2018-02-25 17:45 | US ---
HISTORY: abd pain eval gb and pancreas COMPARISON: Abdominal ultrasound dated 06/13/2017. TECHNIQUE: Sonographic evaluation of the right upper quadrant of the abdomen. FINDINGS: LIVER: Measures 10.8 cm in length. Normal echogenicity of the liver parenchyma. No mass. No intrahepatic bile duct dilatation. GALLBLADDER: Cholelithiasis with wall thickening/edema. Sonographic Gordillo's sign was not elicited. COMMON BILE DUCT: Measures 3 mm. No stones. No dilatation. PANCREAS: Unremarkable as visualized. No mass. No ductal dilatation. RIGHT KIDNEY: Measures 8.2 x 4.3 x 5.0 cm in length. Normal echogenicity. No calculus, mass, or hydronephrosis. AORTA: No aneurysmal dilatation. IVC: Unremarkable. OTHER FINDINGS: None . IMPRESSION: Cholelithiasis with wall thickening/ edema. Sonographic Gordillo sign was not elicited. Findings are equivocal for acute cholecystitis. Nuclear medicine HIDA scan can be obtained to further evaluate patency of the cystic duct.
--- NOTE | 2018-02-25 17:45 | ED PDOC ---
- Laboratory Results Result Diagrams: 02/27/18 06:30 02/27/18 06:30 - ECG O2 Sat by Pulse Oximetry: 97 Pulse Ox Interpretation: Normal Medical Decision Making Medical Decision Making: Recd from Dr Montenegro at 5pm pending US and labs LFTs and WBC normal US reveals +edema of GB wall w cholelithiasis, equivocal for cholecystitis Given development ogf GB wall thickening, recurrent hospitalizations admit for surgical eval Dr Delacruz contacted requested Dr Matthew Lorenzo surgery, [facility] Disposition Counseled Patient/Family Regarding: Studies Performed, Diagnosis (d/w family also) - Clinical Impression Clinical Impression: Cholecystitis, Bradycardia - POA Present On Arrival: None - Disposition Disposition: Admitted as In-Patient Disposition Time: 18:01 Condition: FAIR
[2018-02-25 17:51] LABS: INR 1.1 (0.9-1.2); PROTHROMBIN TIME 12.5 Seconds (9.8-13.1)
--- NOTE | 2018-02-25 19:28 | CP.PCM.CON ---
<Roya Rizo - Last Filed: 02/25/18 22:11> History of Present Illness - History of Present Illness History of Present Illness: General Surgery - Dr. Ayana Lorenzo 82yo M w/ hx of HTN, Hypothyroid, BPH, presenting with RUQ abdominal pain. Pt states he has had this pain on and off for the past 4 months. This episode started about 3 days ago. He describes the pain as being located in the RUQ abdomen, radiating towards the epigastrium, 7/10, constant sharp pain, worsened after eating and with taking a deep breathe. He had associated nausea and vomited several times at home, gastric contents. He denies any Fevers, Chills, SOB, Chest pain, Dysuria, Hematuria, Diarrhea, Constipation. PMH: Hypothyroid, BPH, HTN PSH: none Meds as per chart NKDA Pt was seen in the ED. Vitals and Labs were all WNL. He had U/S of the abdomen done which showed gallstones, GB wall thickening and edema. Surgery was consulted for cholecystitis. Review of Systems - Review of Systems All systems: reviewed and no additional remarkable complaints except (as per HPI ) Past Patient History - Past Medical History & Family History Past Medical History?: Yes - Past Social History Smoking Status: Never Smoked - CARDIAC Hx Hypercholesterolemia: Yes Hx Hypertension: Yes - PULMONARY Hx Asthma: Yes - NEUROLOGICAL Hx Alzheimer's Disease: Yes Hx Dementia: Yes - HEENT Hx Cataracts: Yes (s/p surgery) - RENAL Hx Chronic Kidney Disease: No - ENDOCRINE/METABOLIC Hx Hyperthyroidism: Yes Hx Hypothyroidism: Yes - MUSCULOSKELETAL/RHEUMATOLOGICAL Hx Back Pain: Yes Hx Falls: Yes (5 years ago) - GASTROINTESTINAL Hx Gastrointestinal Disorders: No - GENITOURINARY/GYNECOLOGICAL Hx Genitourinary Disorders: Yes - PSYCHIATRIC Hx Psychophysiologic Disorder: No Hx Substance Use: No - SURGICAL HISTORY Hx Surgeries: No - ANESTHESIA Hx Anesthesia: No Hx Anesthesia Reactions: No Meds Allergies/Adverse Reactions: Allergies Allergy/AdvReac Type Severity Reaction Status Date / Time No Known Allergies Allergy Verified 02/25/18 15:47 - Medications Medications: Current Medications Ciprofloxacin (Cipro 400mg/200ml Dsw) 400 mg in 200 mls @ 200 mls/hr IVPB Q12 ROJELIO PRN Reason: Protocol Physical Exam - Constitutional Appears: Well, No Acute Distress - Head Exam Head Exam: ATRAUMATIC, NORMAL INSPECTION, NORMOCEPHALIC - Eye Exam Eye Exam: EOMI, Normal appearance. absent: Scleral icterus - ENT Exam ENT Exam: Mucous Membranes Dry - Respiratory Exam Respiratory Exam: NORMAL BREATHING PATTERN. absent: Respiratory Distress - Cardiovascular Exam Cardiovascular Exam: REGULAR RHYTHM - GI/Abdominal Exam GI & Abdominal Exam: Guarding (RUQ), Soft, Tenderness (RUQ). absent: Distended , Firm, Hernia, Rigid Additional comments: + Gordillo's sign - Extremities Exam Extremities exam: Positive for: normal inspection. Negative for: pedal edema - Neurological Exam Neurological exam: Alert, Oriented x3 - Psychiatric Exam Psychiatric exam: Normal Affect, Normal Mood - Skin Skin Exam: Dry, Intact Results - Vital Signs Recent Vital Signs: Last Vital Signs Temp 97.9 F 02/25/18 15:47 Pulse 60 02/25/18 15:47 Resp 18 02/25/18 15:47 BP 132/70 02/25/18 15:47 Pulse Ox 97 02/25/18 18:59 - Labs Result Diagrams: 02/25/18 16:45 02/25/18 16:45 Labs: Laboratory Results - last 24 hr 02/25/18 02/25/18 02/25/18 16:45 16:45 16:45 WBC 8.6 RBC 4.44 Hgb 13.7 Hct 41.2 MCV 92.6 MCH 30.9 MCHC 33.4 RDW 14.1 Plt Count 223 MPV 7.5 Neut % (Auto) 60.8 Lymph % (Auto) 23.1 Baldwin % (Auto) 9.1 Eos % (Auto) 6.8 H Baso % (Auto) 0.2 Neut # (Auto) 5.2 Lymph # (Auto) 2.0 Baldwin # (Auto) 0.8 Eos # (Auto) 0.6 Baso # (Auto) 0.0 PT 12.5 INR 1.1 APTT 30.4 Sodium 137 Potassium 4.6 Chloride 97 L Carbon Dioxide 28 Anion Gap 17 BUN 19 Creatinine 1.1 Est GFR ( Amer) > 60 Est GFR (Non-Af Amer) > 60 Random Glucose 89 Calcium 8.8 Total Bilirubin 0.4 AST 27 ALT 29 Alkaline Phosphatase 43 Troponin I < 0.0120 Total Protein 6.8 Albumin 3.9 Globulin 2.9 Albumin/Globulin Ratio 1.3 Lipase 215 - Imaging and Cardiology US - abdomen Status: Image reviewed by me, Report reviewed by me Assessment & Plan - Assessment and Plan (Free Text) Assessment: 82yo M w/ cholelithiasis, acute on chronic cholecystitis -Admitted to medical service -Maintain NPO, IVF -IV Abx, Pain control, anti-emetics prn -Plan for OR this admission for cholecystectomy -Will need Medical and Cardiac clearance prior to surgery DW Dr. Bj Rizo PGY4 <Ayana Lorenzo - Last Filed: 03/01/18 16:22> Results - Vital Signs Recent Vital Signs: Last Vital Signs Temp 98 F 02/28/18 04:47 Pulse 74 02/28/18 04:47 Resp 20 02/28/18 04:47 BP 131/65 02/28/18 04:47 Pulse Ox 93 L 02/28/18 04:47 - Labs Result Diagrams: 02/28/18 05:45 02/28/18 05:45 Assessment & Plan - Assessment and Plan (Free Text) Plan: I personally saw and examined the patient with the resident staff and agree with the above assessment and plan. I personally reviewed the available diagnostic images and imaging reports. Acute on chronic cholecystitis. Lap clifford this admit - Date & Time Date: 02/26/18
[2018-02-25] MEDS ORDERED: Ciprofloxacin 400mg/200ml D5W 400 MG/200 ML BAG IVPB SCH (21:00)
[2018-02-25] MEDS ORDERED: Piperacillin/Tazobact 3.375 gm Inj IVPB ONE (22:28)
[2018-02-25] MEDS: Sodium Chloride 0.9% 1,000 ML IV SCH (22:39)
[2018-02-25] MEDS: Piperacillin/Tazobact 3.375 GM in Sodium Chloride 0.9% 100 ML IVPB SCH (22:40)
[2018-02-26] MEDS: Piperacillin/Tazobact 3.375 GM in Sodium Chloride 0.9% 100 ML IVPB SCH ×4 (03:01→21:41)
[2018-02-26] MEDS: Levothyroxine 100 MCG TAB PO SCH (05:39)
[2018-02-26 06:19] LABS: BASO % 0.3 % (0.0-2.0); EOS % 13.2 % (0.0-4.0); HEMOGLOBIN 13.5 g/dL (12.0-18.0); LYMPH # 2.2 K/uL (1.0-4.3); LYMPH % 29.9 % (20.0-40.0); MEAN CELL VOLUME 92.3 fl (80.0-94.0); MEAN CORPUSCULAR HEMOGLOBIN 31.2 pg (27.0-31.0); MEAN CORPUSCULAR HGB CONC 33.8 g/dL (33.0-37.0); MEAN PLATELET VOLUME 7.5 fl (7.2-11.7); MONO # 0.7 K/uL (0.0-0.8); MONO % 9.8 % (0.0-10.0); NEUT # 3.5 K/uL (1.8-7.0); NEUT % 46.8 % (50.0-75.0); NRBC % 0.1 % (0.0-0.0); RBC 4.31 Mil/uL (4.40-5.90); RED CELL DISTRIBUTION WIDTH 14.6 % (11.5-14.5); WHITE BLOOD COUNT 7.4 K/uL (4.8-10.8)
[2018-02-26 06:31] LABS: ALB/GLOB RATIO 1.1 (1.0-2.1); ALBUMIN 3.2 g/dL (3.5-5.0); ALT/SGPT 22 U/L (21-72); AST/SGOT 27 U/L (17-59); BLOOD UREA NITROGEN 16 mg/dl (9-20); CALCIUM 8.3 mg/dL (8.4-10.2); GFR AFRICAN-AMERICAN > 60; GFR NON-AFRICAN AMERICAN > 60
--- NOTE | 2018-02-26 07:51 | CP.PCM.PN ---
<Elen Curiel - Last Filed: 02/26/18 12:04> Subjective - Date & Time of Evaluation Date of Evaluation: 02/26/18 Time of Evaluation: 07:50 - Subjective Subjective: General surgery progress note for Dr. Timothy Curiel, PGY-2 Pt S & E at bedside at 0655 Pt reports abdominal pain minimally improved. Currently without N & V. No other complaints at this time Objective - Vital Signs/Intake and Output Vital Signs (last 24 hours): Temp Pulse Resp BP Pulse Ox 98.1 F 59 L 20 115/58 L 98 02/26/18 01:00 02/26/18 01:00 02/26/18 01:00 02/26/18 01:00 02/26/18 01:00 - Medications Medications: Current Medications Sodium Chloride (Sodium Chloride 0.9%) 1,000 mls @ 100 mls/hr IV .Q10H ROJELIO Stop: 02/26/18 20:16 Last Admin: 02/25/18 22:39 Dose: 100 mls/hr Piperacillin Sod/Tazobactam (Sod 3.375 gm/ Sodium Chloride) 100 mls @ 100 mls/ hr IVPB Q6 ROJELIO PRN Reason: Protocol Last Admin: 02/26/18 03:01 Dose: 100 mls/hr Levothyroxine Sodium (Synthroid) 100 mcg PO DAILY@0630 ROJELIO Last Admin: 02/26/18 05:39 Dose: 100 mcg Morphine Sulfate (Morphine) 2 mg IVP Q4 PRN PRN Reason: Pain, moderate (4-7) Ondansetron HCl (Zofran Inj) 4 mg IVP Q4 PRN PRN Reason: Nausea/Vomiting - Labs Labs: 02/26/18 06:00 02/26/18 06:00 PT 12.5 Seconds (9.8-13.1) 02/25/18 16:45 INR 1.1 (0.9-1.2) 02/25/18 16:45 APTT 30.4 Seconds (25.6-37.1) 02/25/18 16:45 - Constitutional Appears: Non-toxic, No Acute Distress - Head Exam Head Exam: ATRAUMATIC, NORMAL INSPECTION, NORMOCEPHALIC - Eye Exam Eye Exam: EOMI, Normal appearance - ENT Exam ENT Exam: Mucous Membranes Moist, Normal Exam - Neck Exam Neck Exam: Full ROM, Normal Inspection - Respiratory Exam Respiratory Exam: NORMAL BREATHING PATTERN - Cardiovascular Exam Cardiovascular Exam: REGULAR RHYTHM, +S1, +S2 - GI/Abdominal Exam GI & Abdominal Exam: Soft, Tenderness (RUQ). absent: Distended, Firm, Guarding , Rigid, Rebound - Extremities Exam Extremities Exam: Normal Inspection - Neurological Exam Neurological Exam: Alert, Awake, CN II-XII Intact, Oriented x3 - Psychiatric Exam Psychiatric exam: Normal Affect, Normal Mood - Skin Skin Exam: Dry, Intact, Normal Color, Warm Assessment and Plan - Assessment and Plan (Free Text) Assessment: 82M w/symptomatic cholelithiasis & acute on chronic cholecystitis Plan: Continue IV Abx Continue pain control Continue Anti-emetic PRN Continue IVF Continue NPO Needs cardiac and medical clearance prior to OR DW Dr. Bj Curiel, PGY-2 <Ayana Lorenzo - Last Filed: 02/26/18 17:45> Objective - Vital Signs/Intake and Output Vital Signs (last 24 hours): Temp Pulse Resp BP Pulse Ox 98.2 F 59 L 18 117/61 96 02/26/18 16:44 02/26/18 16:44 02/26/18 16:44 02/26/18 16:44 02/26/18 16:44 - Medications Medications: Current Medications Sodium Chloride (Sodium Chloride 0.9%) 1,000 mls @ 100 mls/hr IV .Q10H [facility] Stop: 02/26/18 20:16 Last Admin: 02/26/18 16:34 Dose: Not Given Piperacillin Sod/Tazobactam (Sod 3.375 gm/ Sodium Chloride) 100 mls @ 100 mls/ hr IVPB Q6 [facility] PRN Reason: Protocol Last Admin: 02/26/18 16:33 Dose: 100 mls/hr Levothyroxine Sodium (Synthroid) 100 mcg PO DAILY@0630 [facility] Last Admin: 02/26/18 05:39 Dose: 100 mcg Morphine Sulfate (Morphine) 2 mg IVP Q4 PRN PRN Reason: Pain, moderate (4-7) Ondansetron HCl (Zofran Inj) 4 mg IVP Q4 PRN PRN Reason: Nausea/Vomiting Pantoprazole Sodium (Protonix Inj) 40 mg IVP DAILY [facility] Last Admin: 02/26/18 11:20 Dose: 40 mg - Labs Labs: 02/26/18 06:00 02/26/18 06:00 PT 12.5 Seconds (9.8-13.1) 02/25/18 16:45 INR 1.1 (0.9-1.2) 02/25/18 16:45 APTT 30.4 Seconds (25.6-37.1) 02/25/18 16:45 Assessment and Plan - Assessment and Plan (Free Text) Plan: Scheduled for lap clifford tomorrow 10am
[2018-02-26] MEDS: Sodium Chloride 0.9% 1,000 ML IV SCH ×2 (08:34→16:34)
--- NOTE | 2018-02-26 08:40 | CP.PCM.HP ---
<Mimi Chaudhari - Last Filed: 02/26/18 10:29> History of Present Illness - History of Present Illness History of Present Illness: 82 yo M with hx gastritis, hypothyroidism, hemorrhoids presented to ED with right upper quadrant and epigastric pain x3 moths, but worsened prior to presentation. Pain accompanied by nausea and nonbloody nonbilious vomitting. Pt stated in ED that he had been seen in ED here and at [place] and had been told the pain is due to his gallbladder, but he has not yet had surgery Denied chest pain, shortness of breath, headache, urinary symptoms, changes in bowel habits. PCP: Dr. Terrazas U/s in ED showed: cholelithiasis with wall thickening + edema Present on Admission - Present on Admission Any Indicators Present on Admission: No Review of Systems - Review of Systems All systems: reviewed and no additional remarkable complaints except (as per HPI ) Past Patient History - Past Medical History & Family History Past Medical History?: Yes - CARDIAC Hx Hypercholesterolemia: Yes Hx Hypertension: Yes - PULMONARY Hx Asthma: Yes - NEUROLOGICAL Hx Alzheimer's Disease: Yes Hx Dementia: Yes - HEENT Hx Cataracts: Yes (s/p surgery) - RENAL Hx Chronic Kidney Disease: No - ENDOCRINE/METABOLIC Hx Hypothyroidism: Yes - MUSCULOSKELETAL/RHEUMATOLOGICAL Hx Back Pain: Yes Hx Falls: Yes (5 years ago) - GASTROINTESTINAL Hx Gastrointestinal Disorders: No - GENITOURINARY/GYNECOLOGICAL Hx Genitourinary Disorders: Yes - PSYCHIATRIC Hx Psychophysiologic Disorder: No Hx Substance Use: No - SURGICAL HISTORY Hx Surgeries: No - ANESTHESIA Hx Anesthesia: No Hx Anesthesia Reactions: No Meds Allergies/Adverse Reactions: Allergies Allergy/AdvReac Type Severity Reaction Status Date / Time No Known Allergies Allergy Verified 02/25/18 15:47 Physical Exam - Constitutional Appears: Non-toxic, No Acute Distress - Eye Exam Eye Exam: Normal appearance - ENT Exam ENT Exam: Mucous Membranes Moist - Respiratory Exam Respiratory Exam: Clear to Auscultation Bilateral, NORMAL BREATHING PATTERN. absent: Respiratory Distress - Cardiovascular Exam Cardiovascular Exam: REGULAR RHYTHM - GI/Abdominal Exam GI & Abdominal Exam: Normal Bowel Sounds, Soft Additional comments: + epigastric and RUQ tenderness - Extremities Exam Extremities exam: Positive for: normal capillary refill, normal inspection - Neurological Exam Neurological exam: Alert - Skin Skin Exam: Normal Color, Warm Results - Vital Signs Recent Vital Signs: Last Vital Signs Temp 97.8 F 02/26/18 08:18 Pulse 58 L 02/26/18 08:18 Resp 18 02/26/18 08:18 BP 121/60 02/26/18 08:18 Pulse Ox 96 02/26/18 08:18 - Labs Result Diagrams: 02/26/18 06:00 02/26/18 06:00 Labs: Laboratory Results - last 24 hr 02/25/18 02/25/18 02/25/18 16:45 16:45 16:45 WBC 8.6 RBC 4.44 Hgb 13.7 Hct 41.2 MCV 92.6 MCH 30.9 MCHC 33.4 RDW 14.1 Plt Count 223 MPV 7.5 Neut % (Auto) 60.8 Lymph % (Auto) 23.1 [place] % (Auto) 9.1 Eos % (Auto) 6.8 H Baso % (Auto) 0.2 Neut # (Auto) 5.2 Lymph # (Auto) 2.0 [place] # (Auto) 0.8 Eos # (Auto) 0.6 Baso # (Auto) 0.0 PT 12.5 INR 1.1 APTT 30.4 Sodium 137 Potassium 4.6 Chloride 97 L Carbon Dioxide 28 Anion Gap 17 BUN 19 Creatinine 1.1 Est GFR ( Amer) > 60 Est GFR (Non-Af Amer) > 60 Random Glucose 89 Calcium 8.8 Total Bilirubin 0.4 AST 27 ALT 29 Alkaline Phosphatase 43 Troponin I < 0.0120 Total Protein 6.8 Albumin 3.9 Globulin 2.9 Albumin/Globulin Ratio 1.3 Lipase 215 02/26/18 02/26/18 06:00 06:00 WBC 7.4 RBC 4.31 L Hgb 13.5 Hct 39.8 MCV 92.3 MCH 31.2 H MCHC 33.8 RDW 14.6 H Plt Count 212 MPV 7.5 Neut % (Auto) 46.8 L Lymph % (Auto) 29.9 Gre[place] % (Auto) 9.8 Eos % (Auto) 13.2 H Baso % (Auto) 0.3 Neut # (Auto) 3.5 Lymph # (Auto) 2.2 [place] # (Auto) 0.7 Eos # (Auto) 1.0 H Baso # (Auto) 0.0 PT INR APTT Sodium 139 Potassium 4.3 Chloride 102 Carbon Dioxide 29 Anion Gap 12 BUN 16 Creatinine 1.1 Est GFR ( Amer) > 60 Est GFR (Non-Af Amer) > 60 Random Glucose 88 Calcium 8.3 L Total Bilirubin 0.4 AST 27 ALT 22 Alkaline Phosphatase 38 Troponin I Total Protein 6.2 L Albumin 3.2 L Globulin 3.0 Albumin/Globulin Ratio 1.1 Lipase Assessment & Plan - Assessment and Plan (Free Text) Assessment: 82 yo M with PMH dementia, hypothyroidism, gastritis, hemorrhoids, with chronic cholelithiasis, now with acute cholecystitis Plan: - Admit to medical floor - Consult surgery- plan for OR pending cardiac clearance - Consult cardio for clearance for surgery - Resume home meds - IV abx- zosyn - NPO, IVF, PPI, zofran - SCD <Cristobal Delacruz - Last Filed: 02/28/18 20:01> Results - Vital Signs Recent Vital Signs: Last Vital Signs Temp 98 F 02/28/18 04:47 Pulse 74 02/28/18 04:47 Resp 20 02/28/18 04:47 BP 131/65 02/28/18 04:47 Pulse Ox 93 L 02/28/18 04:47 - Labs Result Diagrams: 02/28/18 05:45 02/28/18 05:45 Labs: Laboratory Results - last 24 hr 02/28/18 02/28/18 02/28/18 03:59 05:45 05:45 WBC 11.3 H D RBC 4.30 L Hgb 13.5 Hct 39.6 MCV 92.2 MCH 31.4 H MCHC 34.0 RDW 14.2 Plt Count 212 Sodium 138 Potassium 3.6 Chloride 100 Carbon Dioxide 29 Anion Gap 13 BUN 11 Creatinine 1.0 Est GFR ( Amer) > 60 Est GFR (Non-Af Amer) > 60 POC Glucose (mg/dL) 133 H Random Glucose 113 H Calcium 8.7 Total Bilirubin 0.9 AST 124 H D ALT 128 H D Alkaline Phosphatase 43 Total Protein 6.7 Albumin 3.5 Globulin 3.1 Albumin/Globulin Ratio 1.1 Assessment & Plan - Assessment and Plan (Free Text) Plan: Patient was personally seen and examined by me in rounds with residents. Available labs and diagnostic data reviewed. Case, Patient's condition and management plan discussed with residents in rounds. Agree with resident's progress note. Plan: As ordered.
--- NOTE | 2018-02-26 12:27 | RAD ---
Date of service: 02/25/2018 HISTORY: SOB COMPARISON: Made with chest radiograph 11/26/2015 FINDINGS: LUNGS: Mild biapical pleural thickening.Mild bibasilar atelectasis PLEURA: No significant pleural effusion identified, no pneumothorax apparent. CARDIOVASCULAR: Heart size is upper limits of normal. Aorta is ectatic and uncoiled. Rule out aneurysmal dilatation No significant abnormalities. VISUALIZED UPPER ABDOMEN: Normal. OTHER FINDINGS: Note made of a vague radiopaque density over the mid base of the neck that may represent artifact related to the thyroid cartilage IMPRESSION: Mild biapical pleural thickening.Mild bibasilar atelectasis. Aorta is ectatic and uncoiled. Rule out aneurysmal dilatation
--- NOTE | 2018-02-26 17:49 | CP.PCM.CON ---
History of Present Illness - History of Present Illness History of Present Illness: Consultation for evaluation of preoperative cardiac risk stratification HPI: Omar Martinez Junior is a pleasant 82-year-old male with past medical history significant for hypertension who was admitted with an episode of recurrent epigastric upper abdominal discomfort and was noted to have gallbladder wall thickening consistent with possible acute cholecystitis and the plan for possible lap cholecystectomy according to the patient he is very active at baseline and can walk 10-12 blocks with no complains of chest pain or shortness of breath 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 Review of Systems - Review of Systems Systems not reviewed;Unavailable: Acuity of Condition - Constitutional Constitutional: As Per HPI - EENT Eyes: As Per HPI Ears: As Per HPI Nose/Mouth/Throat: As Per HPI - Cardiovascular Cardiovascular: As Per HPI - Respiratory Respiratory: As Per HPI - Gastrointestinal Gastrointestinal: As Per HPI - Genitourinary Genitourinary: As Per HPI - Reproductive: Male Reproductive:Male: As Per HPI - Musculoskeletal Musculoskeletal: As Per HPI - Integumentary Integumentary: As Per HPI - Neurological Neurological: As Per HPI - Psychiatric Psychiatric: As Per HPI - Endocrine Endocrine: As Per HPI - Hematologic/Lymphatic Hematologic: As Per HPI Past Patient History - Past Medical History & Family History Past Medical History?: Yes - Past Social History Smoking Status: Never Smoked - CARDIAC Hx Hypercholesterolemia: Yes Hx Hypertension: Yes - PULMONARY Hx Asthma: Yes - NEUROLOGICAL Hx Alzheimer's Disease: Yes Hx Dementia: Yes - HEENT Hx Cataracts: Yes (s/p surgery) - RENAL Hx Chronic Kidney Disease: No - ENDOCRINE/METABOLIC Hx Hypothyroidism: Yes - MUSCULOSKELETAL/RHEUMATOLOGICAL Hx Back Pain: Yes Hx Falls: Yes (5 years ago) - GASTROINTESTINAL Hx Gastrointestinal Disorders: No - GENITOURINARY/GYNECOLOGICAL Hx Genitourinary Disorders: Yes - PSYCHIATRIC Hx Psychophysiologic Disorder: No Hx Substance Use: No - SURGICAL HISTORY Hx Surgeries: No - ANESTHESIA Hx Anesthesia: No Hx Anesthesia Reactions: No Meds Allergies/Adverse Reactions: Allergies Allergy/AdvReac Type Severity Reaction Status Date / Time No Known Allergies Allergy Verified 02/25/18 15:47 - Medications Medications: Current Medications Sodium Chloride (Sodium Chloride 0.9%) 1,000 mls @ 100 mls/hr IV .Q10H [facility] Stop: 02/26/18 20:16 Last Admin: 02/26/18 16:34 Dose: Not Given Piperacillin Sod/Tazobactam (Sod 3.375 gm/ Sodium Chloride) 100 mls @ 100 mls/ hr IVPB Q6 ROJELIO PRN Reason: Protocol Last Admin: 02/26/18 16:33 Dose: 100 mls/hr Levothyroxine Sodium (Synthroid) 100 mcg PO DAILY@0630 [facility] Last Admin: 02/26/18 05:39 Dose: 100 mcg Morphine Sulfate (Morphine) 2 mg IVP Q4 PRN PRN Reason: Pain, moderate (4-7) Ondansetron HCl (Zofran Inj) 4 mg IVP Q4 PRN PRN Reason: Nausea/Vomiting Pantoprazole Sodium (Protonix Inj) 40 mg IVP DAILY [facility] Last Admin: 02/26/18 11:20 Dose: 40 mg Physical Exam - Constitutional Appears: Well - Head Exam Head Exam: ATRAUMATIC, NORMAL INSPECTION, NORMOCEPHALIC - Eye Exam Eye Exam: EOMI, Normal appearance, PERRL Pupil Exam: NORMAL ACCOMODATION, PERRL - ENT Exam ENT Exam: Mucous Membranes Moist, Normal Exam - Neck Exam Neck exam: Positive for: Normal Inspection - Respiratory Exam Respiratory Exam: Clear to Auscultation Bilateral, NORMAL BREATHING PATTERN - Cardiovascular Exam Cardiovascular Exam: REGULAR RHYTHM, RRR, +S1, +S2, Systolic Murmur - GI/Abdominal Exam GI & Abdominal Exam: Normal Bowel Sounds, Soft. absent: Tenderness - Extremities Exam Extremities exam: Positive for: normal inspection - Back Exam Back exam: NORMAL INSPECTION - Neurological Exam Neurological exam: Alert, CN II-XII Intact, Normal Gait, Oriented x3, Reflexes Normal - Psychiatric Exam Psychiatric exam: Normal Affect, Normal Mood - Skin Skin Exam: Dry, Intact, Normal Color, Warm Results - Vital Signs Recent Vital Signs: Last Vital Signs Temp 98.2 F 02/26/18 16:44 Pulse 59 L 02/26/18 16:44 Resp 18 02/26/18 16:44 BP 117/61 02/26/18 16:44 Pulse Ox 96 02/26/18 16:44 - Labs Result Diagrams: 02/26/18 06:00 02/26/18 06:00 Labs: Laboratory Results - last 24 hr 02/25/18 02/26/18 02/26/18 16:45 06:00 06:00 WBC 7.4 RBC 4.31 L Hgb 13.5 Hct 39.8 MCV 92.3 MCH 31.2 H MCHC 33.8 RDW 14.6 H Plt Count 212 MPV 7.5 Neut % (Auto) 46.8 L Lymph % (Auto) 29.9 Glades % (Auto) 9.8 Eos % (Auto) 13.2 H Baso % (Auto) 0.3 Neut # (Auto) 3.5 Lymph # (Auto) 2.2 Glades # (Auto) 0.7 Eos # (Auto) 1.0 H Baso # (Auto) 0.0 PT 12.5 INR 1.1 Sodium 139 Potassium 4.3 Chloride 102 Carbon Dioxide 29 Anion Gap 12 BUN 16 Creatinine 1.1 Est GFR ( Amer) > 60 Est GFR (Non-Af Amer) > 60 Random Glucose 88 Calcium 8.3 L Total Bilirubin 0.4 AST 27 ALT 22 Alkaline Phosphatase 38 Total Protein 6.2 L Albumin 3.2 L Globulin 3.0 Albumin/Globulin Ratio 1.1 Assessment & Plan (1) Preop cardiovascular exam Assessment and Plan: As per ACC/AHA guidelines he can proceed with planned lap cholecystectomy with no further testing with low to intermediate risk for perioperative cardiac event Status: Acute (2) Abdominal pain Status: Acute (3) Cholelithiases Status: Acute
[2018-02-27] MEDS: Piperacillin/Tazobact 3.375 GM in Sodium Chloride 0.9% 100 ML IVPB SCH ×4 (03:35→21:07)
[2018-02-27] MEDS: Levothyroxine 100 MCG TAB PO SCH (05:42)
[2018-02-27 06:55] LABS: MEAN CELL VOLUME 92.5 fl (80.0-94.0); MEAN CORPUSCULAR HEMOGLOBIN 30.9 pg (27.0-31.0); MEAN CORPUSCULAR HGB CONC 33.4 g/dL (33.0-37.0); RBC 4.55 Mil/uL (4.40-5.90); RED CELL DISTRIBUTION WIDTH 14.2 % (11.5-14.5); WHITE BLOOD COUNT 7.4 K/uL (4.8-10.8)
[2018-02-27 07:01] LABS: INR 1.2 (0.9-1.2); PARTIAL THROMBOPLASTIN TIME 29.2 Seconds (25.6-37.1); PROTHROMBIN TIME 13.4 Seconds (9.8-13.1)
[2018-02-27 08:00] LABS: ALB/GLOB RATIO 1.1 (1.0-2.1); ALBUMIN 3.6 g/dL (3.5-5.0); ALT/SGPT 24 U/L (21-72); AST/SGOT 30 U/L (17-59); BLOOD UREA NITROGEN 10 mg/dl (9-20); CALCIUM 8.6 mg/dL (8.4-10.2); GFR AFRICAN-AMERICAN > 60; GFR NON-AFRICAN AMERICAN > 60
--- NOTE | 2018-02-27 08:33 | CP.PCM.PN ---
<JaquanjermainekenMimi - Last Filed: 02/27/18 12:36> Subjective - Date & Time of Evaluation Date of Evaluation: 02/27/18 Time of Evaluation: 08:50 - Subjective Subjective: Pt seen and evaluated this morning; no acute events overnight. Continues to c/o epigastric and RUQ pain as before. Has been NPO for lap clifford today. Ambulated to bathroom at the end of exam. Objective - Vital Signs/Intake and Output Vital Signs (last 24 hours): Temp Pulse Resp BP Pulse Ox 98.0 F 69 20 147/72 95 02/27/18 08:04 02/27/18 08:04 02/27/18 08:04 02/27/18 08:04 02/27/18 08:04 - Medications Medications: Current Medications Piperacillin Sod/Tazobactam (Sod 3.375 gm/ Sodium Chloride) 100 mls @ 100 mls/ hr IVPB Q6 [facility] PRN Reason: Protocol Last Admin: 02/27/18 03:35 Dose: 100 mls/hr Levothyroxine Sodium (Synthroid) 100 mcg PO DAILY@0630 [facility] Last Admin: 02/27/18 05:42 Dose: 100 mcg Morphine Sulfate (Morphine) 2 mg IVP Q4 PRN PRN Reason: Pain, moderate (4-7) Last Admin: 02/27/18 07:25 Dose: 2 mg Ondansetron HCl (Zofran Inj) 4 mg IVP Q4 PRN PRN Reason: Nausea/Vomiting Pantoprazole Sodium (Protonix Inj) 40 mg IVP DAILY [facility] Last Admin: 02/26/18 11:20 Dose: 40 mg - Labs Labs: 02/27/18 06:30 02/27/18 06:30 PT 13.4 Seconds (9.8-13.1) H 02/27/18 06:30 INR 1.2 (0.9-1.2) 02/27/18 06:30 APTT 29.2 Seconds (25.6-37.1) 02/27/18 06:30 - Constitutional Appears: No Acute Distress - Eye Exam Eye Exam: Normal appearance - ENT Exam ENT Exam: Mucous Membranes Moist - Respiratory Exam Respiratory Exam: Clear to Ausculation Bilateral, NORMAL BREATHING PATTERN - Cardiovascular Exam Cardiovascular Exam: REGULAR RHYTHM, +S1, +S2 - GI/Abdominal Exam GI & Abdominal Exam: Soft, Tenderness, Normal Bowel Sounds. absent: Guarding, Rigid, Rebound Additional comments: RUQ, epigastric - Extremities Exam Extremities Exam: Normal Inspection - Neurological Exam Neurological Exam: Alert, Awake, Normal Gait - Skin Skin Exam: Dry, Warm Assessment and Plan - Assessment and Plan (Free Text) Assessment: 82 yo M with PMH dementia, hypothyroidism, gastritis, hemorrhoids, with chronic cholelithiasis/acute cholecystitis. For lap clifford today. Plan: - Consult surgery- plan for OR today for lap cholecystectomy - Consult cardio for clearance for surgery - Dr. Lamb cleared - Resume home meds - IV abx- zosyn - NPO, IVF, PPI, zofran - SCD <Cristobal Delacruz K - Last Filed: 02/28/18 20:11> Objective - Vital Signs/Intake and Output Vital Signs (last 24 hours): Temp Pulse Resp BP Pulse Ox 98 F 74 20 131/65 93 L 02/28/18 04:47 02/28/18 04:47 02/28/18 04:47 02/28/18 04:47 02/28/18 04:47 - Labs Labs: 02/28/18 05:45 02/28/18 05:45 PT 13.4 Seconds (9.8-13.1) H 02/27/18 06:30 INR 1.2 (0.9-1.2) 02/27/18 06:30 APTT 29.2 Seconds (25.6-37.1) 02/27/18 06:30 Assessment and Plan - Assessment and Plan (Free Text) Plan: Patient was personally seen and examined by me in rounds with residents. Available labs and diagnostic data reviewed. Case, Patient's condition and management plan discussed with residents in rounds. Agree with resident's progress note. Plan: As ordered.
[2018-02-27] MEDS ORDERED: ePHEDrine 50 mg/ml Inj ONE (09:40)
[2018-02-27] MEDS ORDERED: Propofol 10 mg/ml Inj (20 ML) ONE (09:40)
[2018-02-27] MEDS ORDERED: Lidocaine 4% (Laryng-O-Jet) Kit MM ONE (09:42)
[2018-02-27] MEDS ORDERED: Etomidate 20 mg/10ml Inj IV ONE (09:42)
[2018-02-27] MEDS ORDERED: Rocuronium 10 mg/ml (5 ml) ONE (09:42)
[2018-02-27] MEDS ORDERED: Succinylcholine 200 mg/10 ml Inj IV ONE (09:42)
[2018-02-27] MEDS ORDERED: Bupivacaine HCl 0.25% PF (30 ml) Inj ONE (09:55)
[2018-02-27] MEDS ORDERED: Lactated Ringer's 1,000 ML IV ONE ×2 (10:17→12:15)
[2018-02-27] MEDS ORDERED: Sevoflurane - Inhalation Anesthetic Liq (250 ml) ONE (10:37)
[2018-02-27] MEDS ORDERED: Bupivacaine HCl 0.25% PF (30 ml) Inj IJ ONE ×2 (10:45)
[2018-02-27] MEDS ORDERED: Dexamethasone 4 mg/1 ml ONE (10:58)
[2018-02-27] MEDS ORDERED: Neostigmine 1:1000 (1 mg/ml) Inj ONE (12:05)
[2018-02-27] MEDS ORDERED: Lactated Ringer's 1,000 ML IV SCH (13:00)
[2018-02-27] MEDS ORDERED: Acetaminophen IV 1,000 MG in IV SUPPLIES 0 ML IVPB SCH (13:00)
--- NOTE | 2018-02-27 13:13 | PCM.SURG1 ---
Surgeon's Initial Post Op Note - Surgeon's Notes Surgeon: Ayana Lorenzo MD Bed Setter: Elen Curiel, PGY-2 Type of Anesthesia: General Endo Anesthesia Administered By: Dr. Starks Pre-Operative Diagnosis: Acute on chronic cholecystitis Operative Findings: See op report Post-Operative Diagnosis: Acute on chronic cholecystitis Operation Performed: Laparoscopic cholecystectomy Specimen/Specimens Removed: Gallbladder Estimated Blood Loss: EBL {In ML}: 200 Blood Products Given: N/A Drains Used: No Drains Post-Op Condition: Good Date of Surgery/Procedure: 02/27/18 Time of Surgery/Procedure: 11:45
[2018-02-27] MEDS ORDERED: Acetaminophen IV 1,000 MG in IV SUPPLIES 100 ML IVPB ONE (14:45)
[2018-02-28 00:57] VITALS: RESP 20
[2018-02-28 00:58] VITALS: TEMP 98; O2SAT 93
[2018-02-28] MEDS: Piperacillin/Tazobact 3.375 GM in Sodium Chloride 0.9% 100 ML IVPB SCH ×2 (03:43→09:12)
[2018-02-28] MEDS ORDERED: Oxycodone/Acetaminophen 5/325 mg Tab PO ONE (03:55)
[2018-02-28 04:48] VITALS: BP 131/65; PULSE 74
[2018-02-28 06:02] LABS: HEMOGLOBIN 13.5 g/dL (12.0-18.0); MEAN CELL VOLUME 92.2 fl (80.0-94.0); MEAN CORPUSCULAR HEMOGLOBIN 31.4 pg (27.0-31.0); RBC 4.3 Mil/uL (4.40-5.90); RED CELL DISTRIBUTION WIDTH 14.2 % (11.5-14.5); WHITE BLOOD COUNT 11.3 K/uL (4.8-10.8)
[2018-02-28] MEDS: Levothyroxine 100 MCG TAB PO SCH (06:21)
[2018-02-28 06:23] LABS: ALB/GLOB RATIO 1.1 (1.0-2.1); ALBUMIN 3.5 g/dL (3.5-5.0); ALT/SGPT 128 U/L (21-72); AST/SGOT 124 U/L (17-59); BLOOD UREA NITROGEN 11 mg/dl (9-20); CALCIUM 8.7 mg/dL (8.4-10.2); GFR AFRICAN-AMERICAN > 60; GFR NON-AFRICAN AMERICAN > 60
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
--- NOTE | 2018-02-28 11:58 | CP.PCM.PN ---
Subjective - Date & Time of Evaluation Date of Evaluation: 02/28/18 Time of Evaluation: 11:58 Objective - Vital Signs/Intake and Output Vital Signs (last 24 hours): Temp Pulse Resp BP Pulse Ox 98 F 74 20 131/65 93 L 02/28/18 04:47 02/28/18 04:47 02/28/18 04:47 02/28/18 04:47 02/28/18 04:47 - Medications Medications: Current Medications Acetaminophen (Tylenol 325mg Tab) 650 mg PO Q4 PRN PRN Reason: Pain, moderate (4-7) Heparin Sodium (Porcine) (Heparin) 5,000 units SC Q8 ROJELIO PRN Reason: Protocol Last Admin: 02/28/18 09:09 Dose: 5,000 units Piperacillin Sod/Tazobactam (Sod 3.375 gm/ Sodium Chloride) 100 mls @ 100 mls/ hr IVPB Q6 ROJELIO PRN Reason: Protocol Last Admin: 02/28/18 09:12 Dose: 100 mls/hr Levothyroxine Sodium (Synthroid) 100 mcg PO DAILY@0630 [facility] Last Admin: 02/28/18 06:21 Dose: 100 mcg Ondansetron HCl (Zofran Inj) 4 mg IVP Q4 PRN PRN Reason: Nausea/Vomiting Pantoprazole Sodium (Protonix Inj) 40 mg IVP DAILY [facility] Last Admin: 02/28/18 09:12 Dose: 40 mg Tamsulosin HCl (Flomax) 0.4 mg PO DAILY [facility] Last Admin: 02/28/18 09:09 Dose: 0.4 mg Tramadol HCl (Ultram) 50 mg PO Q6 PRN PRN Reason: Pain, severe (8-10) Last Admin: 02/28/18 00:36 Dose: 50 mg - Labs Labs: 02/28/18 05:45 02/28/18 05:45 PT 13.4 Seconds (9.8-13.1) H 02/27/18 06:30 INR 1.2 (0.9-1.2) 02/27/18 06:30 APTT 29.2 Seconds (25.6-37.1) 02/27/18 06:30 Assessment and Plan (1) Preop cardiovascular exam Status: Acute (3) Cholelithiases Status: Acute
--- NOTE | 2018-02-28 14:32 | PN ---
DATE: 02/28/2018 SUBJECTIVE: The patient seen and examined. Interim events noted. Consults and intervention from Surgery noted and appreciated. The patient remains in regular medical floor. The patient is status post cholecystectomy, ambulating without any problem. Feels okay. Tolerated diet very well. Going to bathroom. No chest pain. No shortness of breath. Abdominal pain resolved. PHYSICAL EXAMINATION: GENERAL: The patient is in no acute distress. VITAL SIGNS: Stable. HEART: S1 and S2, normal and regular. LUNGS: Good bilateral air exchange. ABDOMEN: Soft and nontender. Surgical site is clean. No sign of complication. No guarding. No rigidity. No rebound. Bowel sounds are plus and normal. EXTREMITIES: No edema. No calf swelling. No tenderness. No acute ischemia. DEFENSIVE LINE COACH: Exam is essentially unchanged. DIAGNOSTIC DATA: Available diagnostic data reviewed. Liver function test, most likely elevated from previous. Same result discussed with the patient and according to Surgery, it is expected and it will be followed up as outpatient by Surgery. ASSESSMENT AND PLAN: The patient is medically stable. We will discharge the patient home today. Case and plan discussed with the patient at length. Case and plan also discussed with Surgery. Case and plan also discussed with the patient's primary care physician, . Cristobal Delacruz MD
--- NOTE | 2018-02-28 16:40 | CARD ---
APPROVED REPORT Date of service: 02/25/2018 EKG Measurement Heart [id number] <Conclusion> Sinus bradycardia Otherwise normal ECG
--- NOTE | 2018-03-01 16:50 | PCM.OP ---
Operative Report - Operative Report Date of Surgery/Procedure: 02/27/18 Time of Surgery/Procedure: 10:30 Surgeon: Ayana Lorenzo MD Card Scraper: Elen Curiel DO (PGY2 resident) Anesthesia/Sedation: General endotracheal; 1% lidocaine + 0.25% Marcaine mix local anesthesia Pre-Operative Diagnosis: Acute on Chronic cholecystitis Post-Operative Diagnosis: Acute on Chronic cholecystitis Indication for Surgery: 83 male presented to ED for recurrent symptomatic cholelithiasis. Second episode in last year. Now with acute cholecystitis. Details of HPI in clinical chart. Patient understands the risks and benefits of the procedure as documented in the clinic chart but specifically risk of cystic duct leak, and common bile duct injury, need for open surgery and has consented to the procedure. Operative Findings: Inflamed and dilated, intrahepatic gallbladder. Clips in place on cystic duct and cystic artery at end of case without evidence of bleeding or bile leak. Procedure/Operation Description: PROCEDURES PERFORMED: 1) Laparoscopic Cholecystectomy. . DESCRIPTION OF PROCEDURE: The patient was given a preoperative antibiotics on the floor, zosyn. SCD boots were placed for DVT prophylaxis. The patient had an orogastric tube placed in order to empty the stomach after the induction of general anesthesia. The abdomen was prepped and draped in sterile fashion and in the infraaumbilical midline, a circumlinear incision was made and the umbilical raphe was identified and the fascia was divided between clamps at its base entering the abdomen in an open fashion. A 10 -mm trocar was inserted in the abdomen and the abdomen was insufflated to 15 mmHg pressure with CO2. A 30-degree viewing scope was then inserted and the abdomen was generally inspected and there was not found to be any additional signs of pathology. In the right upper quadrant, two 5-mm ports were placed after the induction of local anesthetic under direct vision and in the subxiphoid midline, a 10-mm radially dilating port was placed in the similar fashion. . The fundus of the gallbladder was identified beneath the liver edge and retracted to the right upper quadrant and the neck of the gallbladder was visualized. There were omental adhesions to the gallbladder that were taken down with a cominbation of sharp dissection and hook cautery. The peritoneal attachments from the lateral portion of the gallbladder/cystic duct junction were gently dissected and divided to open up the Apollo of [place]. The Apollo of [place] was then dissected up onto the liver bed posterior to the gallbladder in order to ensure that this was the cystic duct and not tenting of the common bile duct. The peritoneal attachments on the medial portion of the gallbladder going up to the side of the liver were taken. The critical view was obtained. The cystic artery was divided between clips. The duct was then doubly clipped and ligated and the clips were inspected. . Once this was completed, the gallbladder was dissected free from the liver bed using electrocautery and placed this in an endo catch bag. This was withdrawn through the umbilical port. Once this was done, the abdomen was reinspected. The clips were in good position on the cystic artery and duct stumps and the abdomen was generally irrigated and drained. Some liver bed bleeding controlled with coagulation and hemostatic at end of case. Once this was done, the ports were removed from the abdomen and the abdomen was desufflated with air. The umbilical port was closed with interrupted 0 [id number] Vicryl sutures x 3 and the skin incisions were closed with 4-0 Vicryl sutures. The patient tolerated the procedure well and was extubated and stable in recovery after the procedure. . I was present throughout the entirety of the procedure. Sponge, needle and instrument counts were correct. Estimated Blood Loss: 150 Drains: none Complications: none Specimen: gallbladder Discharge & Condition: stable in recovery after the procedure.
== END 2018-02-28 12:14 | disposition home or self-care (01) | DRG 419 ==
LOC: H.ER 15:34 → H.ERHOLD 18:57 → H.MEDSURG1 22:55
PROVIDERS: ADMIT Internal Medicine; ATTEND Internal Medicine
PROC: 0FT44ZZ Resection of Gallbladder, Percutaneous Endoscopic Approach (ICD-10-PCS; principal; 2018-02-27 10:00)
DX: K80.12 Calculus of gallbladder with acute and chronic cholecystitis without obstruction (principal); N40.0 Benign prostatic hyperplasia without lower urinary tract symptoms; E03.9 Hypothyroidism, unspecified; E78.00 Pure hypercholesterolemia, unspecified; G30.9 Alzheimer's disease, unspecified; F02.80 Dementia in other diseases classified elsewhere, unspecified severity, without behavioral disturbance, psychotic disturbance, mood disturbance, and anxiety; I10 Essential (primary) hypertension; J45.909 Unspecified asthma, uncomplicated; K29.70 Gastritis, unspecified, without bleeding; K64.9 Unspecified hemorrhoids; M54.5 Low back pain

== ENCOUNTER 2018-07-30 20:38 | Emergency (ER) | payer MEDICARE, MEDICAID ==
[2018-07-30 20:38] VITALS: BMI 25.5
[2018-07-30 21:39] LABS: BASO % 0.2 % (0.0-2.0); EOS % 0.2 % (0.0-4.0); HEMOGLOBIN 13.3 g/dL (12.0-18.0); LYMPH # 1.3 K/uL (1.0-4.3); LYMPH % 18.3 % (20.0-40.0); MEAN CELL VOLUME 92.4 fl (80.0-94.0); MEAN CORPUSCULAR HEMOGLOBIN 30.5 pg (27.0-31.0); MONO # 0.1 K/uL (0.0-0.8); MONO % 0.9 % (0.0-10.0); NEUT # 5.8 K/uL (1.8-7.0); NEUT % 80.4 % (50.0-75.0); NRBC % 0.1 % (0.0-0.0); RBC 4.35 Mil/uL (4.40-5.90); RED CELL DISTRIBUTION WIDTH 13.7 % (11.5-14.5); WHITE BLOOD COUNT 7.2 K/uL (4.8-10.8)
[2018-07-30 21:47] LABS: INR 1.1
[2018-07-30 21:50] LABS: PARTIAL THROMBOPLASTIN TIME 30.2 Seconds (25.6-37.1)
[2018-07-30 21:56] LABS: ALB/GLOB RATIO 1.2 (1.0-2.1); ALT/SGPT 29 U/L (21-72); AST/SGOT 33 U/L (17-59); BLOOD UREA NITROGEN 18 mg/dl (9-20); CALCIUM 8.4 mg/dL (8.4-10.2); GFR NON-AFRICAN AMERICAN > 60
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
[2018-07-30] MEDS ORDERED: Morphine 4 MG/ML VIAL IVP ONE ×2 (22:24→23:26)
[2018-07-30 22:52] LABS: URINE BILIRUBIN NEGATIVE (NEGATIVE); URINE BLOOD SMALL (NEGATIVE); URINE CLARITY CLEAR (Clear); URINE COLOR STRAW (YELLOW); URINE GLUCOSE (UA) >=500 mg/dL (NEGATIVE); URINE LEUKOCYTE ESTERASE NEG Leu/uL (Negative); URINE PROTEIN NEGATIVE (NEGATIVE); URINE UROBILINOGEN 0.2-1.0 mg/dL (0.2-1.0)
[2018-07-30] MEDS ORDERED: Lidocaine 5% Patch TD STA (23:26)
[2018-07-31 05:08] VITALS: BP 155/76; PULSE 71; RESP 17; TEMP 98.5; O2SAT 99
--- NOTE | 2018-07-31 06:11 | CARD ---
APPROVED REPORT Date of service: 07/30/2018 EKG Measurement Heart [id number] <Conclusion> Normal sinus rhythm Normal ECG
--- NOTE | 2018-07-31 10:54 | CT ---
Date of service: 07/30/2018 PROCEDURE: CT Abdomen and Pelvis without intravenous contrast HISTORY: renal colic COMPARISON: 11/27/2015. CT thorax abdomen and pelvis, dissection study TECHNIQUE: Unenhanced. Neither IV nor oral contrast administered Radiation dose: Total exam DLP = 322.81 mGy-cm. This CT exam was performed using one or more of the following dose reduction techniques: Automated exposure control, adjustment of the mA and/or kV according to patient size, and/or use of iterative reconstruction technique. FINDINGS: LOWER THORAX: Focal bronchiectatic changes identified right middle lobe. Similar findings identified previously. LIVER: Unremarkable. No gross lesion or ductal dilatation. GALLBLADDER AND BILE DUCTS: Status post cholecystectomy. No abnormality is seen in the gallbladder fossa. She PANCREAS: Unremarkable. No gross lesion or ductal dilatation. SPLEEN: Unremarkable. ADRENALS: Unremarkable. No mass. KIDNEYS AND URETERS: Unremarkable. No hydronephrosis. No solid mass. VASCULATURE: Atherosclerotic calcification and mural plaque present. Findings are seen throughout the aorta which is non aneurysmal. BOWEL: Diverticulosis without an acute inflammatory component or other associated pathologic process. APPENDIX: Unremarkable. Normal appendix. PERITONEUM: Unremarkable. No free fluid. No free air. LYMPH NODES: Unremarkable. No enlarged lymph nodes. BLADDER: Unremarkable. REPRODUCTIVE: Unremarkable. BONES: No acute fracture. Grade 1 anterolisthesis L5-S1. Multilevel degenerative change. OTHER FINDINGS: None. IMPRESSION: No acute findings related to/ accounting for the clinical presentation. Additional benign and/or incidental findings described above. Concordant results (preliminary interpretation) provided by [employer]. Procedure Completed: 21:59 Preliminary Report: Dictated and Authenticated: 23:08 Final Interpretation: 10:50. July 31, 2018
== END 2018-07-31 05:07 | disposition home or self-care (01) ==
LOC: H.ER 20:38
DX: M54.5 Low back pain (principal); R10.9 Unspecified abdominal pain; E03.9 Hypothyroidism, unspecified; E05.90 Thyrotoxicosis, unspecified without thyrotoxic crisis or storm; E78.00 Pure hypercholesterolemia, unspecified; F02.80 Dementia in other diseases classified elsewhere, unspecified severity, without behavioral disturbance, psychotic disturbance, mood disturbance, and anxiety; G30.9 Alzheimer's disease, unspecified; I10 Essential (primary) hypertension; K57.30 Diverticulosis of large intestine without perforation or abscess without bleeding
CPT/HCPCS: 74176; 80053; 81003; 84484; 85025; 85610; 85730; 93005; 96374; 96375; 96376; 99282; J1885; J2270

== ENCOUNTER 2018-10-28 22:17 | Emergency (ER) | payer MEDICARE, MEDICAID ==
[2018-10-28 22:17] VITALS: BMI 25.5
[2018-10-28] MEDS ORDERED: Albuterol-Ipratrop 3 mg / 0.5 (3 ml) UD IH STA (23:13)
--- NOTE | 2018-10-28 23:16 | ED PDOC ---
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 Associated nasal congestion, shortness of breath, and subjective fevers. Patient states he was evaluated by his primary doctor and given an "injection" and "pills" which he finished without improvement. Denies chest pain, palpitations, leg pain/swelling, recent travel, sick contacts Past Medical History Reviewed: Historical Data, Nursing Documentation, Vital Signs Vital Signs: Last Vital Signs Temp 98.7 F 10/28/18 22:24 Pulse 104 H 10/28/18 22:24 Resp 20 10/28/18 22:24 BP 118/70 10/28/18 22:24 Pulse Ox 95 10/28/18 22:24 - Medical History PMH: Alzheimer's Disease, Asthma, Benign Prostatic Hyperplasia, Dementia, HTN, Hypercholesterolemia, Hyperthyroidism, Hypothyroidism Denies: Chronic Kidney Disease - Surgical History Surgical History: Cholecystectomy - Family History Family History: States: Unknown Family Hx - Home Medications Home Medications: Ambulatory Orders Medication Instructions Recorded Levothyroxine [Synthroid] 1 tab PO DAILY 11/27/15 Acetaminophen [Tylenol] 650 mg PO Q6 PRN #30 capsule 02/28/18 Docusate [Colace] 50 mg PO BID PRN #120 cap 02/28/18 Lidocaine 5% [Lidoderm] 1 ea TD QAM #10 patch 07/31/18 traMADol [Ultram] 50 mg PO Q6 PRN #12 tab 07/31/18 Albuterol 0.083% [Albuterol 1 vial IH TID PRN #30 vial 10/29/18 Sulfate 3 Ml] Albuterol HFA [Ventolin HFA 90 1 puff IH Q4 PRN #1 inh 10/29/18 mcg/actuation (8 g)] Azithromycin [Zithromax] 250 mg PO DAILY #1 packet 10/29/18 Mask, Face [Nebulizer Aerosol Mask 1 dev INH PRN PRN #1 dev 10/29/18 Adult] Nebulizer [Compact Compressor 1 dev XX Q6 PRN #1 dev 10/29/18 Nebulizer] Prednisone 50 mg PO DAILY #4 tablet 10/29/18 - Allergies Allergies/Adverse Reactions: Allergies Allergy/AdvReac Type Severity Reaction Status Date / Time No Known Allergies Allergy Verified 02/25/18 15:47 Review of Systems ROS Statement: Except As Marked, All Systems Reviewed And Found Negative ENT: Positive for: Nose Congestion Respiratory: Positive for: Cough, Shortness of Breath Physical Exam - Reviewed Nursing Documentation Reviewed: Yes Vital Signs Reviewed: Yes - Physical Exam Appears: Positive for: Well, Non-toxic, No Acute Distress Head Exam: Positive for: ATRAUMATIC, NORMAL INSPECTION, NORMOCEPHALIC Skin: Positive for: Normal Color Eye Exam: Positive for: Normal appearance ENT: Positive for: Normal ENT Inspection Cardiovascular/Chest: Positive for: Regular Rate, Rhythm Respiratory: Positive for: Decreased Breath Sounds Gastrointestinal/Abdominal: Positive for: Normal Exam Back: Positive for: Normal Inspection Extremity: Positive for: Normal ROM Neurological/Psych: Positive for: Awake, Alert - Laboratory Results Result Diagrams: 10/28/18 23:44 10/28/18 23:44 - ECG ECG: Positive for: Viewed By Me (reviewed by ED attending) ECG Rhythm: Positive for: Sinus Rhythm O2 Sat by Pulse Oximetry: 95 - Progress ED Course And Treament: -cbc -cmp -troponin -bnp -ekg -cxr -shelter monitor -duoneb -IV solumedrol -IV mag sulfate EXAM: CR Chest, 2 View. CLINICAL HISTORY: Cough short of breath COMPARISON: None provided. FINDINGS: LUNGS: The lungs appear within normal limits. PLEURAL SPACES: No consolidation, pleural effusion or pneumothorax is identified on the current study. MEDIASTINUM: Tortuous ectatic thoracic aorta is redemonstrated and appears relatively similar to the prior study dated February 25, 2018. The heart is not appear enlarged. BONES: Mild multilevel degenerative spine changes are noted. Mild diffuse osteopenia is noted. IMPRESSION: 1. Tortuous ectatic thoracic aorta is redemonstrated and appears relatively similar to the prior study dated February 25, 2018. 2. No acute cardiopulmonary abnormality On re-eval, patient states he is feeling better and wishes to be discharged. Cough improved. Denies shortness of breath. O2 95% room air. Patient educated on findings, discharged with rx Albuterol HFA, Albuterol neb solution, Prednsione, Zpak Advised follow up with PMD within 2 days Return precautions given Disposition - Clinical Impression Clinical Impression: Bronchitis - Patient ED Disposition Is Patient to be Admitted: No Counseled Patient/Family Regarding: Studies Performed, Diagnosis, Need For Followup, Rx Given - Disposition Disposition: Routine/Home Disposition Time: 04:22 Condition: IMPROVED Prescriptions: Albuterol 0.083% [Albuterol Sulfate 3 Ml] 1 vial IH TID PRN #30 vial PRN Reason: Cough Albuterol HFA [Ventolin HFA 90 mcg/actuation (8 g)] 1 puff IH Q4 PRN #1 inh PRN Reason: Wheezing Azithromycin [Zithromax] 250 mg PO DAILY #1 packet Mask, Face [Nebulizer Aerosol Mask Adult] 1 dev INH PRN PRN #1 dev PRN Reason: Wheezing Nebulizer [Compact Compressor Nebulizer] 1 dev XX Q6 PRN #1 dev PRN Reason: Wheezing Prednisone 50 mg PO DAILY #4 tablet Instructions: Acute Bronchitis Forms: [employer] (South Sudanese) Print Language: BAHAMIAN
[2018-10-28] MEDS ORDERED: Albuterol-Ipratrop 3 mg / 0.5 (3 ml) UD ONE (23:50)
[2018-10-28 23:52] LABS: BASO # 0.1 K/uL (0.0-0.2); BASO % 0.4 % (0.0-2.0); EOS # 0.6 K/uL (0.0-0.7); EOS % 4.3 % (0.0-4.0); LYMPH # 3.9 K/uL (1.0-4.3); LYMPH % 27.5 % (20.0-40.0); MEAN CORPUSCULAR HEMOGLOBIN 29.7 pg (27.0-31.0); MEAN CORPUSCULAR HGB CONC 32.6 g/dL (33.0-37.0); MEAN PLATELET VOLUME 7.1 fl (7.2-11.7); MONO % 6.8 % (0.0-10.0); NEUT # 8.6 K/uL (1.8-7.0); NRBC % 0.1 % (0.0-0.0); RBC 4.06 Mil/uL (4.40-5.90); RED CELL DISTRIBUTION WIDTH 14.2 % (11.5-14.5); WHITE BLOOD COUNT 14.1 K/uL (4.8-10.8)
[2018-10-29 00:06] LABS: ALB/GLOB RATIO 1.1 (1.0-2.1); ALBUMIN 3.7 g/dL (3.5-5.0); ALT/SGPT 46 U/L (21-72); AST/SGOT 28 U/L (17-59); BLOOD UREA NITROGEN 19 mg/dl (9-20); CALCIUM 8.9 mg/dL (8.4-10.2); GFR NON-AFRICAN AMERICAN > 60
[2018-10-29 00:13] LABS: VENOUS BLOOD GAS BASE EXCESS 4.5 mmol/L (0.0-2.0); VENOUS BLOOD GAS PCO2 54 mmHg (40-60); VENOUS BLOOD GAS PO2 29 mm/Hg (30-55); VENOUS BLOOD PH 7.37 (7.32-7.43)
[2018-10-29 00:18] LABS: B-TYPE NATRIURETIC PEPTIDE 135 pg/ml (0-900)
[2018-10-29] MEDS ORDERED: Albuterol-Ipratrop 3 mg / 0.5 (3 ml) UD ONE (01:54)
[2018-10-29] MEDS ORDERED: Magnesium Sulfate 2 gm/50 ml 2 GM/50 ML BAG IVPB STA (02:09)
[2018-10-29] MEDS ORDERED: Albuterol-Ipratrop 3 mg / 0.5 (3 ml) UD IH STA (02:35)
[2018-10-29 04:42] VITALS: BP 121/63; PULSE 87; RESP 18; TEMP 98; O2SAT 97
--- NOTE | 2018-10-29 08:57 | CARD ---
APPROVED REPORT Date of service: 10/29/2018 EKG Measurement Heart [id number] <Conclusion> Normal sinus rhythm Normal ECG
--- NOTE | 2018-10-29 15:19 | RAD ---
Date of service: 10/28/2018 HISTORY: Cough, shortness of breath. COMPARISON: 02/25/2018. TECHNIQUE: Chest PA and lateral FINDINGS: LUNGS: No active pulmonary disease. PLEURA: No significant pleural effusion identified. No pneumothorax apparent. CARDIOVASCULAR: No aortic atherosclerotic calcification present. Normal cardiac size. No pulmonary vascular congestion. OSSEOUS STRUCTURES: No significant abnormalities. VISUALIZED UPPER ABDOMEN: Normal. OTHER FINDINGS: None. IMPRESSION: No active disease. No significant interval change compared to the prior examination(s).
== END 2018-10-29 04:42 | disposition home or self-care (01) ==
LOC: H.ER 22:17
DX: J40 Bronchitis, not specified as acute or chronic (principal); I10 Essential (primary) hypertension; G30.9 Alzheimer's disease, unspecified; J45.909 Unspecified asthma, uncomplicated; N40.0 Benign prostatic hyperplasia without lower urinary tract symptoms; F02.80 Dementia in other diseases classified elsewhere, unspecified severity, without behavioral disturbance, psychotic disturbance, mood disturbance, and anxiety; Z79.899 Other long term (current) drug therapy; E05.90 Thyrotoxicosis, unspecified without thyrotoxic crisis or storm; E03.9 Hypothyroidism, unspecified; E78.00 Pure hypercholesterolemia, unspecified
CPT/HCPCS: 71046; 80053; 82803; 83880; 84484; 85025; 87040; 87804; 93005; 96365; 96374; 99283; J2930